=== PATIENT | male | born 1940 | race Caucasian/White ===

== ENCOUNTER 2020-02-26 07:59 | Outpatient (CLI) | payer MEDICARE, SELFPAY ==
[2020-02-26 08:31] LABS: Basophils Percent Auto 0.7 % (0.2-1.2); Eosinophils Absolute Auto 0.2 K/mm3 (0-0.3); Hematocrit 45.3 % (42.0-52.0); Hemoglobin 15.7 g/dL (14.0-18.0); Immature Granulocyte Absolute 0.04 K/mm3 (0.00-0.031); Immature Granulocyte Percent A 0.7 % (0-0.5); Lymphocytes Percent Auto 26.8 % (18.3-44.2); Mean Corpuscular HGB Conc 34.7 g/dl (32-36); Mean Corpuscular Hemoglobin 33.5 pg (26-34); Mean Corpuscular Volume 96.6 fl (80-100); Mean Platelet Volume 9.2 fl (7.4-10.4); Monocytes Absolute Auto 0.7 K/mm3 (0.1-0.6); Monocytes Percent Auto 10.9 % (2.6-8.5); Neutrophils Absolute Auto 3.5 K/mm3 (1.3-6.7); Neutrophils Percent Auto 57.9 % (45.5-73.1); Platelet Count Result 257 k/mm3 (150-375); Red Blood Count 4.69 M/mm3 (4.6-6.20); Red Cell Distribution Width 12.6 % (11.5-14.5)
[2020-02-26 08:44] LABS: Alanine Aminotransferase 26 U/L (4-50); Albumin Level 4.5 g/dL (3.5-5.1); Alkaline Phosphatase 85 U/L (38-126); Aspartate Amino Transferase 29 U/L (17-59); Bilirubin,Total 0.9 mg/dL (0.2-1.3); Blood Urea Nitrogen 14 mg/dL (9-20); Calcium 9.3 mg/dL (8.4-10.2); Carbon Dioxide 31 mmol/L (22-30); Chloride 96 mmol/L (98-107); Cholesterol 162 mg/dL (0-200); Estimated Glomerular Filt Rate > 60; Glucose 98 mg/dL (75-110); HDL Direct 61 mg/dL; Potassium 3.6 mmol/L (3.4-5.0); Sodium 134 mmol/L (137-145); Triglycerides 166 mg/dL (<150); Uric Acid 3.9 mg/dL (3.5-8.5)
[2020-02-26 08:55] LABS: LDL Cholesterol Direct 69 mg/dL
[2020-02-26 09:03] LABS: Vitamin D 25 Hydroxy 36.3 ng/mL
[2020-02-26 09:14] LABS: Prostate Specific Antigen 4.8 ng/mL (< OR = 4.0)
== END 2020-02-26 08:00 | disposition home or self-care (01) ==
LOC: ANHLAB 08:04
PROVIDERS: PCP Family Medicine; Visit Provider Family Medicine
DX: N18.3 Chronic kidney disease, stage 3 (moderate) (principal); N40.1 Benign prostatic hyperplasia with lower urinary tract symptoms; E55.9 Vitamin D deficiency, unspecified; I12.9 Hypertensive chronic kidney disease with stage 1 through stage 4 chronic kidney disease, or unspecified chronic kidney disease; Z12.5 Encounter for screening for malignant neoplasm of prostate; R53.1 Weakness; M10.9 Gout, unspecified
CPT/HCPCS: 36415; 80053; 80061; 82306; 84153; 84439; 84443; 84480; 84550; 85025; G0103

== ENCOUNTER 2020-05-26 10:52 | Outpatient (CLI) | payer MEDICARE, SELFPAY ==
[2020-05-26 16:21] LABS: Anion Gap 11 mmol/L (8-16); Blood Urea Nitrogen 15 mg/dL (9-20); Calcium 9.6 mg/dL (8.4-10.2); Carbon Dioxide 28 mmol/L (22-30); Chloride 98 mmol/L (98-107); Estimated Glomerular Filt Rate > 60; Glucose 152 mg/dL (75-110); Potassium 3.6 mmol/L (3.4-5.0); Sodium 137 mmol/L (137-145)
== END 2020-05-26 10:53 | disposition home or self-care (01) ==
PROVIDERS: PCP Family Medicine; Visit Provider Family Medicine
DX: E87.1 Hypo-osmolality and hyponatremia (principal)
CPT/HCPCS: 36415; 80048

== ENCOUNTER 2020-10-01 07:02 | Outpatient (NON) | payer MEDICARE, SELFPAY ==
[2020-10-01 21:50] LABS: SARS-CoV-2 RNA PCR Positive
== END 2020-10-01 07:03 ==
LOC: ANHCOVIDDT 07:02
PROVIDERS: PCP Family Medicine; Visit Provider Family Medicine
DX: U07.1 COVID-19 (principal)
CPT/HCPCS: C9803; U0003; U0005

== ENCOUNTER 2021-03-09 10:15 | Outpatient (CLI) | payer MEDICARE, SELFPAY ==
[2021-03-09 11:02] LABS: Hematocrit 45.3 % (42.0-52.0); Hemoglobin 15.2 g/dL (14.0-18.0); Mean Corpuscular HGB Conc 33.6 g/dl (32-36); Mean Corpuscular Hemoglobin 32.8 pg (26-34); Mean Corpuscular Volume 97.6 fl (80-100); Mean Platelet Volume 9.3 fl (7.4-10.4); Platelet Count Result 222 k/mm3 (150-375); Red Blood Count 4.64 M/mm3 (4.6-6.20); Red Cell Distribution Width 12.6 % (11.5-14.5); White Blood Count 5.1 K/mm3 (4.5-10.0)
[2021-03-09 11:16] LABS: Alanine Aminotransferase 24 U/L (4-50); Albumin Level 4.4 g/dL (3.5-5.1); Alkaline Phosphatase 73 U/L (38-126); Anion Gap 6 mmol/L (8-16); Aspartate Amino Transferase 31 U/L (17-59); Bilirubin,Total 1.1 mg/dL (0.2-1.3); Blood Urea Nitrogen 10 mg/dL (9-20); Calcium 9.8 mg/dL (8.4-10.2); Carbon Dioxide 31 mmol/L (22-30); Chloride 103 mmol/L (98-107); Cholesterol 147 mg/dL (0-200); Estimated Glomerular Filt Rate > 60; Glucose 96 mg/dL (75-110); HDL Direct 68 mg/dL; Potassium 4.2 mmol/L (3.4-5.0); Sodium 140 mmol/L (137-145); Triglycerides 64 mg/dL (<150)
[2021-03-09 11:27] LABS: LDL Cholesterol Direct 54 mg/dL
[2021-03-09 11:34] LABS: Creatinine Urine 36.2 mg/dL
[2021-03-09 11:44] LABS: Prostate Specific Antigen 5.8 ng/mL (< OR = 4.0); Total Triiodothyronine (T3) 1.16 NG/ML (0.97-1.69)
[2021-03-09 11:57] LABS: Free T4 Free Thyroxine 1.04 ng/mL (0.78-2.19)
[2021-03-09 11:59] LABS: Microalbumin Urine Random < 6.0 mg/L (0-16.7)
[2021-03-09 12:00] LABS: MALB Creatinine Ratio < 16.6 mg/g (0-30)
[2021-03-09 12:09] LABS: Vitamin D 25 Hydroxy 36.5 ng/mL
[2021-03-09 12:26] LABS: Basophils Percent Auto 0.8 % (0.2-1.2); Eosinophils Absolute Auto 0.2 K/mm3 (0-0.3); Eosinophils Percent Auto 4.1 % (0-4.4); Immature Granulocyte Absolute 0.04 K/mm3 (0.00-0.031); Immature Granulocyte Percent A 0.8 % (0-0.5); Lymphocytes Absolute Auto 1.36 K/mm3 (0.9-3.2); Monocytes Absolute Auto 0.5 K/mm3 (0.1-0.6); Monocytes Percent Auto 9.9 % (2.6-8.5); Neutrophils Absolute Auto 2.7 K/mm3 (1.3-6.7); Neutrophils Percent Auto 56.4 % (45.5-73.1)
== END 2021-03-09 10:16 | disposition home or self-care (01) ==
PROVIDERS: PCP Family Medicine; Visit Provider Nurse Practitioner
DX: I50.32 Chronic diastolic (congestive) heart failure (principal); N40.1 Benign prostatic hyperplasia with lower urinary tract symptoms; I10 Essential (primary) hypertension; R97.20 Elevated prostate specific antigen [PSA]; E55.9 Vitamin D deficiency, unspecified; E66.9 Obesity, unspecified; Z12.5 Encounter for screening for malignant neoplasm of prostate
CPT/HCPCS: 36415; 80053; 80061; 82043; 82306; 84153; 84439; 84443; 84480; 85025; 85027; G0103

== ENCOUNTER 2021-04-27 02:16 | Day surgery (SDC) | payer MEDICARE, SELFPAY ==
[2021-04-17 14:41] VITALS: BMI 28.7
[2021-04-27 07:57] VITALS: BP 141/75; PULSE 74; RESP 20; TEMP 36.1; O2SAT 99; BMI 29.0
[2021-04-27] MEDS: LACTATED RINGERS 1,000 ML 150 ML IV CONT (08:19)
[2021-04-27] MEDS: GENTAMICIN 80MG/SOD CHL 50 ML 80 MG/50 ML BAG 100 MG IVPB (08:21)
--- NOTE | 2021-04-27 08:23 | P.PNAN_ITS ---
Anes - Initial Pre Proc Eval Procedure: Operation Date: 04/27/21 09:15 Proposed Procedures p Screening Colonoscopy - Jadiel Bee MD Date/Time: 04/27/21 08:23 Surgeon: Jadiel Bee MD Pre Op Diagnosis: hx of colon polyps Patient Data Age: 80 Gender: M Height: 1.83 m Weight: 96.9 kg Last Vital Signs Temp 36.1 C L 04/27/21 07:57 Pulse 74 04/27/21 07:57 Resp 20 04/27/21 07:57 BP 141/75 H 04/27/21 07:57 Pulse Ox 99 04/27/21 07:57 Allergies Allergy/AdvReac Type Severity Reaction Status Date / Time adhesive Allergy Intermediate Blister Verified 04/27/21 07:56 adhesive tape Allergy Intermediate BLISTERS Verified 04/27/21 07:56 Home Medications Medication Instructions Recorded Confirmed Type allopurinol 300 mg PO DAILY 04/17/21 04/17/21 History aspirin 81 mg PO DAILY 04/17/21 04/17/21 History atorvastatin 10 mg PO DAILY 04/17/21 04/17/21 History coQ10 (ubiquinol) 200 mg PO DAILY 04/17/21 04/17/21 History hydrochlorothiazide 25 mg PO DAILY 04/17/21 04/17/21 History multivitamin [A To Z Multivitamin] 1 tablet PO DAILY 04/17/21 04/17/21 History omeprazole 20 mg PO DAILY 04/17/21 04/17/21 History tamsulosin 0.4 mg PO DAILY 04/17/21 04/17/21 History vitamin B complex [B 1 tablet PO DAILY 04/17/21 04/17/21 History Complex-Vitamin B12] Patient hx anesthesia problems: none Family hx anesthesia problems: none [facility] Past Medical History Medical History (Updated 04/27/21 @ 08:27 by Bob Cluadio MD) CAD (coronary artery disease) Obesity Surgical History Surgical History History of colon resection Hx of CABG S/P AVR Family History Family History Mother Family history of malignant neoplasm Sibling Family history of malignant neoplasm Father Family history of Parkinson's disease Social History Social History Smoking status: Former smoker Smoking end date: 09/16/06 Alcohol intake: current Alcohol use details: SOCIALLY Substance use: never Substance use type: does not use Living arrangements: with family Spiritual care concerns: No Anes - Eval Final PreProcedure Day of Procedure 04/27/21 08:23 Patient weight: obese Heart: regular rate and rhythm Lungs: clear to auscultation Airway: Mallampati scale class II Neurological: alert and oriented Last oral intake: >/= 8 hours ASA classification: III Emergent: no Anesthetic plan: proceed Anesthesia type and monitoring: general GIVS and standard monitoring Informed Consent: The patient's anesthetic plan and its attendant risks and benefits were discussed with the patient/family/POA. Questions were solicited and answers provided to the satisfaction of the patient/family/POA.
--- NOTE | 2021-04-27 08:41 | WPDGICN ---
Assessment and Plan Assessment and plan (1) History of colon polyps: Code(s): Z86.010 - Personal history of colonic polyps Status: Acute Assessment and Plan: Patient has a history of colon polyps in the past on several previous endoscopies. At 1 point he had colon resection because of diverticulitis. Plan is for surveillance colonoscopy now and at intervals in the future. Further recommendations will be given after colonoscopy. GI Consult Note Consult date/time: 04/27/21 08:41 HPI: Simeno Crowe Jr. is a 80 year old male Presents for screening colonoscopy. Patient has a history of colon polyps on several previous colonoscopies. Most recent colonoscopy was 2016. Patient denies any blood in his stools. He reports his current weight appetite bowel movements are normal. He denies abdominal pain. Family history is noncontributory. Review of Systems Review of Systems: All systems reviewed & are unremarkable except as noted in HPI and below PMFSH Past Medical History Medical History (Updated 04/27/21 @ 08:43 by Jadiel Bee MD) CAD (coronary artery disease) Obesity Surgical History Surgical History History of colon resection Hx of CABG S/P AVR Family History Family History Mother Family history of malignant neoplasm Sibling Family history of malignant neoplasm Father Family history of Parkinson's disease Social History Social History Smoking status: Former smoker Smoking end date: 09/16/06 Alcohol intake: current Alcohol use details: SOCIALLY Substance use: never Substance use type: does not use Living arrangements: with family Spiritual care concerns: No Meds Home Medications and Allergies Home Medications Medication Instructions Recorded Confirmed Type allopurinol 300 mg PO DAILY 04/17/21 04/17/21 History aspirin 81 mg PO DAILY 04/17/21 04/17/21 History atorvastatin 10 mg PO DAILY 04/17/21 04/17/21 History coQ10 (ubiquinol) 200 mg PO DAILY 04/17/21 04/17/21 History hydrochlorothiazide 25 mg PO DAILY 04/17/21 04/17/21 History multivitamin [A To Z Multivitamin] 1 tablet PO DAILY 04/17/21 04/17/21 History omeprazole 20 mg PO DAILY 04/17/21 04/17/21 History tamsulosin 0.4 mg PO DAILY 04/17/21 04/17/21 History vitamin B complex [B 1 tablet PO DAILY 04/17/21 04/17/21 History Complex-Vitamin B12] Allergies Allergy/AdvReac Type Severity Reaction Status Date / Time adhesive Allergy Intermediate Blister Verified 04/27/21 07:56 adhesive tape Allergy Intermediate BLISTERS Verified 04/27/21 07:56 Vital Signs Vital Signs - 24 hr 04/27/21 07:57 Temperature 97.0 F L Pulse Rate 74 Respiratory Rate 20 Blood Pressure 141/75 H Pulse Oximetry 99 Exam Narrative: Physical exam reveals patient to be alert. Vital signs are stable. HEENT exam is unremarkable. Patient is anicteric. Lungs are clear to auscultation and percussion. Heart is without murmur or extra sounds. Abdominal exam bowel sounds are present soft nontender with no organomegaly. Digital external rectal exam is normal.
[2021-04-27] MEDS: AMPICILLIN 2 GM/NS 100 ML 2 GM/100 ML BAG IVPB (08:48)
[2021-04-27 09:39] VITALS: BP 111/69; PULSE 66; RESP 15; O2SAT 99
[2021-04-27 09:49] VITALS: BP 115/65; PULSE 70; RESP 20; O2SAT 99
[2021-04-27 09:59] VITALS: BP 114/77; PULSE 72; RESP 20; O2SAT 100
== END 2021-04-27 10:18 | disposition home or self-care (01) ==
PROVIDERS: PCP Family Medicine; Visit Provider Internal Medicine Gastroenterology
PROC: 0DJD8ZZ Inspection of Lower Intestinal Tract, Via Natural or Artificial Opening Endoscopic (ICD-10-PCS; CPT 45378; principal; 2021-04-27 09:15)
DX: Z12.11 Encounter for screening for malignant neoplasm of colon (principal); D12.7 Benign neoplasm of rectosigmoid junction; K64.8 Other hemorrhoids; Z98.0 Intestinal bypass and anastomosis status; Z79.82 Long term (current) use of aspirin; I25.10 Atherosclerotic heart disease of native coronary artery without angina pectoris; E66.9 Obesity, unspecified; Z68.29 Body mass index [BMI] 29.0-29.9, adult; Z87.891 Personal history of nicotine dependence; Z87.19 Personal history of other diseases of the digestive system; Z95.1 Presence of aortocoronary bypass graft; Z95.4 Presence of other heart-valve replacement
CPT/HCPCS: 45385; 88305; J0290; J1580; J2001; J2704; J7120

== ENCOUNTER 2022-02-02 08:17 | Outpatient (CLI) | payer MEDICARE, SELFPAY ==
[2022-02-02 09:05] LABS: Basophils Absolute Auto 0.1 K/mm3 (0.0-0.1); Basophils Percent Auto 0.9 % (0.2-1.2); Eosinophils Absolute Auto 0.2 K/mm3 (0-0.3); Hematocrit 44.9 % (42.0-52.0); Hemoglobin 14.9 g/dL (14.0-18.0); Immature Granulocyte Absolute 0.03 K/mm3 (0.00-0.031); Immature Granulocyte Percent A 0.5 % (0-0.5); Lymphocytes Absolute Auto 1.27 K/mm3 (0.9-3.2); Mean Corpuscular HGB Conc 33.2 g/dl (32-36); Mean Corpuscular Hemoglobin 32.2 pg (26-34); Mean Platelet Volume 9.4 fl (7.4-10.4); Monocytes Absolute Auto 0.6 K/mm3 (0.1-0.6); Monocytes Percent Auto 9.5 % (2.6-8.5); Neutrophils Absolute Auto 3.6 K/mm3 (1.3-6.7); Neutrophils Percent Auto 63.1 % (45.5-73.1); Platelet Count Result 264 k/mm3 (150-375); Red Blood Count 4.63 M/mm3 (4.6-6.20); Red Cell Distribution Width 13.2 % (11.5-14.5); White Blood Count 5.8 K/mm3 (4.5-10.0)
[2022-02-02 09:20] LABS: Alanine Aminotransferase 18 U/L (6-50); Albumin Level 4.4 g/dL (3.5-5.1); Alkaline Phosphatase 83 U/L (38-126); Anion Gap 8 mmol/L (8-16); Aspartate Amino Transferase 25 U/L (17-59); Bilirubin,Total 0.7 mg/dL (0.2-1.3); Blood Urea Nitrogen 13 mg/dL (9-20); Calcium 9.2 mg/dL (8.4-10.2); Carbon Dioxide 29 mmol/L (22-30); Chloride 101 mmol/L (98-107); Cholesterol 145 mg/dL (0-200); Estimated Glomerular Filt Rate > 60; Glucose 90 mg/dL (65-110); HDL Direct 56 mg/dL; Potassium 3.9 mmol/L (3.4-5.0); Sodium 138 mmol/L (137-145); Triglycerides 94 mg/dL (<150)
[2022-02-02 09:31] LABS: LDL Cholesterol Direct 52 mg/dL
[2022-02-02 10:49] LABS: Free T4 Free Thyroxine 1.15 ng/mL (0.78-2.19); Vitamin D 25 Hydroxy 45.3 ng/mL
== END 2022-02-02 08:18 | disposition home or self-care (01) ==
PROVIDERS: PCP Family Medicine; Visit Provider Family Medicine
DX: E78.5 Hyperlipidemia, unspecified (principal); E55.9 Vitamin D deficiency, unspecified; Z13.29 Encounter for screening for other suspected endocrine disorder; Z13.220 Encounter for screening for lipoid disorders; Z13.6 Encounter for screening for cardiovascular disorders; Z13.0 Encounter for screening for diseases of the blood and blood-forming organs and certain disorders involving the immune mechanism
CPT/HCPCS: 36415; 80053; 80061; 82306; 84439; 84443; 84480; 85025

== ENCOUNTER 2023-03-06 07:07 | Outpatient (CLI) | payer MEDICARE, SELFPAY ==
[2023-03-06 07:51] LABS: Basophils Percent Auto 0.7 % (0.2-1.2); Eosinophils Absolute Auto 0.2 K/mm3 (0-0.3); Eosinophils Percent Auto 4.4 % (0-4.4); Hematocrit 45.3 % (42.0-52.0); Hemoglobin 15.2 g/dL (14.0-18.0); Immature Granulocyte Absolute 0.03 K/mm3 (0.00-0.031); Immature Granulocyte Percent A 0.6 % (0-0.5); Lymphocytes Absolute Auto 1.38 K/mm3 (0.9-3.2); Lymphocytes Percent Auto 25.4 % (18.3-44.2); Mean Corpuscular HGB Conc 33.6 g/dl (32-36); Mean Corpuscular Volume 98.3 fl (80-100); Mean Platelet Volume 9.5 fl (7.4-10.4); Monocytes Absolute Auto 0.6 K/mm3 (0.1-0.6); Monocytes Percent Auto 10.5 % (2.6-8.5); Neutrophils Absolute Auto 3.2 K/mm3 (1.3-6.7); Neutrophils Percent Auto 58.4 % (45.5-73.1); Platelet Count Result 232 k/mm3 (150-375); Red Blood Count 4.61 M/mm3 (4.6-6.20); Red Cell Distribution Width 12.9 % (11.5-14.5); White Blood Count 5.4 K/mm3 (4.5-10.0)
[2023-03-06 08:04] LABS: Alanine Aminotransferase 30 U/L (6-50); Albumin Level 4.6 g/dL (3.5-5.1); Alkaline Phosphatase 80 U/L (38-126); Anion Gap 5 mmol/L (8-16); Aspartate Amino Transferase 32 U/L (17-59); Bilirubin,Total 0.9 mg/dL (0.2-1.3); Blood Urea Nitrogen 13 mg/dL (9-20); Calcium 9.4 mg/dL (8.4-10.2); Carbon Dioxide 34 mmol/L (22-30); Chloride 102 mmol/L (98-107); Cholesterol 145 mg/dL (0-200); Estimated Glomerular Filt Rate > 60; Glucose 103 mg/dL (65-110); HDL Direct 59 mg/dL; Potassium 4.1 mmol/L (3.4-5.0); Sodium 141 mmol/L (137-145); Triglycerides 111 mg/dL (<150)
[2023-03-06 08:28] LABS: LDL Cholesterol Direct 61 mg/dL
[2023-03-06 08:34] LABS: Prostate Specific Antigen 6.4 ng/mL (< OR = 4.0)
[2023-03-06 08:38] LABS: Creatinine Urine 123.7 mg/dL
[2023-03-06 08:44] LABS: MALB Creatinine Ratio < 4.9 mg/g (0-30); Microalbumin Urine Random < 6.0 mg/L (0-16.7)
[2023-03-06 09:09] LABS: Vitamin D 25 Hydroxy 41.3 ng/mL
[2023-03-06 23:12] LABS: Total Triiodothyronine (T3) 1.22 NG/ML (0.97-1.69)
[2023-03-10 05:21] LABS: Triiodothyronine T3 Free 3.5 pg/mL (2.3-4.2)
== END 2023-03-06 07:08 | disposition home or self-care (01) ==
LOC: ANHLAB 07:11
PROVIDERS: PCP Family Medicine; Visit Provider Nurse Practitioner Adult Health
DX: R60.9 Edema, unspecified (principal); I10 Essential (primary) hypertension; K21.9 Gastro-esophageal reflux disease without esophagitis; M10.9 Gout, unspecified; E78.5 Hyperlipidemia, unspecified; R53.83 Other fatigue; R53.1 Weakness; Z12.5 Encounter for screening for malignant neoplasm of prostate; E55.9 Vitamin D deficiency, unspecified
CPT/HCPCS: 36415; 80053; 80061; 82043; 82306; 84153; 84439; 84443; 84480; 84481; 85025; G0103

== ENCOUNTER 2023-07-26 07:44 | Outpatient (CLI) | payer MEDICARE, SELFPAY ==
--- NOTE | 2023-07-26 07:53 | ECG_ITS ---
Measurements Intervals [place] Rate: 65 P: -8 DE: 173 QRS: 2 QRSD: 120 T: 78 QT: 388 QTc: 403 Interpretive Statements SINUS RHYTHM INCOMPLETE LEFT BUNDLE BRANCH BLOCK DELAYED PRECORDIAL R/S TRANSITION BORDERLINE ST-T WAVE ABNORMALITY- HIGH LATERAL LEADS BASELINE ARTIFACT- I, II, III, AVR, AVL, AVF, V1 ABNORMAL ECG COMPARED TO ECG 11/16/2018 12:22:38 SINUS RHYTHM NOW PRESENT Electronically Signed On 07-26-2023 8:35:08 PUBLIC HEALTH TECHNICIAN by Nish Shahid D.O.
[2023-07-26 08:46] LABS: Anion Gap 7 mmol/L (8-16); Blood Urea Nitrogen 13 mg/dL (9-20); Calcium 9.4 mg/dL (8.4-10.2); Carbon Dioxide 33 mmol/L (22-30); Chloride 100 mmol/L (98-107); Estimated Glomerular Filt Rate > 60; Glucose 105 mg/dL (65-110); Sodium 140 mmol/L (137-145)
== END 2023-07-26 07:45 | disposition home or self-care (01) ==
LOC: ANHSURGERY 07:48
PROVIDERS: Anesthesiology; PCP Family Medicine; Visit Provider Surgery
DX: K40.90 Unilateral inguinal hernia, without obstruction or gangrene, not specified as recurrent (principal); I10 Essential (primary) hypertension; Z01.818 Encounter for other preprocedural examination; I44.7 Left bundle-branch block, unspecified
CPT/HCPCS: 36415; 80048; 86850; 86900; 86901; 93005

== ENCOUNTER 2023-07-29 01:49 | Day surgery (SDC) | payer MEDICARE, SELFPAY ==
--- NOTE | 2023-07-25 09:27 | PC.NURSE ---
Report to the Outpatient Waiting Room, entrance under the green pavilion located off [facility], at time __0730 on date __07/29/23 . Planned Procedure Time: _30 . Time changes happen often and if your time is changed the preop area will call you the afternoon before. - You and your visitor will be asked to self-screen and do not enter if you have any COVID symptoms. - A mask is optional within the hospital at this time. Patients may have clear liquids (water, carbonated beverages, clear teas, apple juice) until 3 hours prior to surgery with a maximum of 20 ounces. - No food from midnight until time of surgery - Infants may have breast milk until 4 hours before surgery, formula 6 hours prior to surgery. - Children will be allowed to drink immediately following surgery. If applicable, please bring a bottle or sippy cup to assist with drinking. Juice, water, soda, and popsicles are readily available. For infants on formula, please bring formula the day of surgery. Pacifiers are allowed. Take the following medications with a SIP of water the morning of surgery: ___NONE DO NOT STOP ANY OF YOUR OTHER PRESCRIPTION MEDICATIONS PRIOR TO SURGERY ?EXCEPT THE FOLLOWING Medications to discontinue per physician __ALL VITAMINS AND SUPPLEMENTS 3 DAYS PRE OP .LAST DOSE 07/25/23 Please no make-up, nail belizean, hairspray, perfume, deodorant, or body powder the day of surgery. No jewelry (including any body piercings) or valuables the day of surgery, leave them at home. Please take a shower or bath the night before, or the morning of, surgery with an antibacterial soap. Wear comfortable, loose fitting clothing. Children are encouraged to wear pajamas. - Jewelry must be removed prior to entering the operating room. Rings and piercings that are not removed may be cut off. - The hospital will not accept responsibility for valuables. - Please leave all valuables, including medications, at home the day of surgery. If you are going home after surgery, a licensed cat driver must drive you home. - NO public transportation without another adult if you receive anesthesia. - We recommend that an adult stay with you for 24 hours following discharge. - We also recommend that you do not drive, make important decision, drink alcoholic beverages, or take any drugs that were not prescribed by your health care provider for at least 24 hours after your discharge time. Follow any additional instructions given to you from your surgeon. If you or anyone in your household have experienced Covid symptoms in the past week, please notify your surgeon or the nurse liaison at the phone number below for possible testing. Telephone instructions given to __PATIENT and asked if any additional questions and then verbalized understanding. Patient advised to call surgeon office or pre surgery nurse liaison [phone] if any additional questions.
[2023-07-25 09:36] VITALS: BMI 29.1
[2023-07-29] VITALS (8 sets, daily range): BP systolic 112–141; BP diastolic 57–84; PULSE 64–72; RESP 14–18; TEMP 36.2–36.7; O2SAT 97–99
--- NOTE | 2023-07-29 07:26 | WPDANESEPPF ---
Anes - Initial Pre Proc Eval Procedure: Operation Date: 07/29/23 09:30 Proposed Procedures p Robotic Assisted Left Inguinal Hernia Repair with Mesh - Latasha Becerra MD Date/Time: 07/29/23 07:26 Surgeon: Latasha Becerra MD Pre Op Diagnosis: left inguinal hernia Patient Data Age: 83 Gender: M Height: 1.83 m Weight: 97.55 kg Allergies Allergy/AdvReac Type Severity Reaction Status Date / Time adhesive tape Allergy Intermediate BLISTERS Verified 07/29/23 08:26 Home Medications Medication Instructions Recorded Confirmed Type allopurinol 300 mg tablet 300 mg PO DAILY 04/17/21 07/29/23 History aspirin 81 mg tablet 81 mg PO DAILY 04/17/21 07/29/23 History atorvastatin 10 mg tablet 10 mg PO DAILY 04/17/21 07/29/23 History coQ10 (ubiquinol) 200 mg capsule 200 mg PO DAILY 04/17/21 07/29/23 History hydrochlorothiazide 25 mg tablet 25 mg PO DAILY 04/17/21 07/29/23 History multivitamin 1 tablet PO DAILY 04/17/21 07/29/23 History omeprazole 20 mg capsule,delayed 20 mg PO DAILY 04/17/21 07/29/23 History release tamsulosin 0.4 mg capsule 0.8 mg PO HS 04/17/21 07/29/23 History vitamin B complex (B 1 tablet PO DAILY 04/17/21 07/29/23 History Complex-Vitamin B12 tablet) Patient hx anesthesia problems: none Family hx anesthesia problems: none Results Review: All pre-operative results and documents have been reviewed as part of the pre-operative evaluation. [facility] Past Medical History Medical History CAD (coronary artery disease) GERD (gastroesophageal reflux disease) High cholesterol History of blood transfusion HTN (hypertension) Obesity Skin cancer Surgical History Surgical History H/O aortic valve replacement H/O prostate biopsy H/O right inguinal hernia repair H/O shoulder surgery History of colon resection Hx of CABG S/P AVR Family History Family History Mother Family history of malignant neoplasm Sibling Family history of malignant neoplasm Diabetes mellitus Hypertension Kidney disease Father Family history of Parkinson's disease Other Heart disease Social History Social History Smoking packs per day: 1.5 Smoking cigarettes per day: 30.0 Years smoked: 40 Smoking pack-years: 60.00 Smoking status: Former smoker Tobacco type: cigarettes Smoking end date: 09/16/06 Alcohol intake: current Drinks per week: 4 Alcohol use details: SOCIALLY-beer Substance use: never Substance use type: does not use Living arrangements: with family Occupation/Education: retired Spiritual care concerns: No Anes - Eval Final PreProcedure Day of Procedure 07/29/23 07:26 Patient weight: obese Heart: regular rate and rhythm Lungs: clear to auscultation Airway: Mallampati scale class II Neurological: alert and oriented Last oral intake: >/= 8 hours ASA classification: III Emergent: no Anesthetic plan: proceed Anesthesia type and monitoring: general ETT and standard monitoring Results Review: All pre-operative results and documents have been reviewed as part of the pre-operative evaluation. Informed Consent: The patient's anesthetic plan and its attendant risks and benefits were discussed with the patient/family/POA. Questions were solicited and answers provided to the satisfaction of the patient/family/POA.
--- NOTE | 2023-07-29 07:29 | PM.IMHP ---
H&P: HPI History of Present Illness Date/Time: 07/29/23 07:29 Chief Complaint: left inguinal hernia Narrative: Simeon returns to the office for another recheck of a left inguinal hernia. Patient was previous evaluated for this by Dr. Marquez in September 2021. At the time patient was mostly asymptomatic and elected to proceed with watchful waiting vs surgical repair. He states that since he was last seen he has noticed a gradual increase in the size of the hernia. He reports mild discomfort with activity. Reports difficulty with urination as well as constipation. He also reports an umbilical bulge. Patient has a previous surgical history of a right inguinal hernia repair. Review of Systems Review of Systems: All systems reviewed & are unremarkable except as noted in HPI and below PMFSH Past Medical History Medical History CAD (coronary artery disease) GERD (gastroesophageal reflux disease) High cholesterol History of blood transfusion HTN (hypertension) Obesity Skin cancer Surgical History Surgical History H/O aortic valve replacement H/O prostate biopsy H/O right inguinal hernia repair H/O shoulder surgery History of colon resection Hx of CABG S/P AVR Family History Family History Mother Family history of malignant neoplasm Sibling Family history of malignant neoplasm Diabetes mellitus Hypertension Kidney disease Father Family history of Parkinson's disease Other Heart disease Social History Social History Smoking packs per day: 1.5 Smoking cigarettes per day: 30.0 Years smoked: 40 Smoking pack-years: 60.00 Smoking status: Former smoker Tobacco type: cigarettes Smoking end date: 09/16/06 Alcohol intake: current Drinks per week: 4 Alcohol use details: SOCIALLY-beer Substance use: never Substance use type: does not use Living arrangements: with family Occupation/Education: retired Spiritual care concerns: No Meds Home Medications and Allergies Home Medications Medication Instructions Recorded Confirmed Type allopurinol 300 mg tablet 300 mg PO DAILY 04/17/21 07/25/23 History aspirin 81 mg tablet 81 mg PO DAILY 04/17/21 07/25/23 History atorvastatin 10 mg tablet 10 mg PO DAILY 04/17/21 07/25/23 History coQ10 (ubiquinol) 200 mg capsule 200 mg PO DAILY 04/17/21 07/25/23 History hydrochlorothiazide 25 mg tablet 25 mg PO DAILY 04/17/21 07/25/23 History multivitamin 1 tablet PO DAILY 04/17/21 07/25/23 History omeprazole 20 mg capsule,delayed 20 mg PO DAILY 04/17/21 07/25/23 History release tamsulosin 0.4 mg capsule 0.8 mg PO HS 04/17/21 07/25/23 History vitamin B complex (B 1 tablet PO DAILY 04/17/21 07/25/23 History Complex-Vitamin B12 tablet) Allergies Allergy/AdvReac Type Severity Reaction Status Date / Time adhesive tape Allergy Intermediate BLISTERS Verified 07/25/23 09:16 Exam Const: General: cooperative, comfortable and no acute distress Resp: Auscultation: clear to auscultation bilaterally Cardio: Rate: regular rate Rhythm: regular rhythm GI: Inspection: normal to inspection and non-distended GI Palp: No abdominal tenderness, Yes Soft to palpation, No Tenderness to palpation present (GI) and Yes Hernia present Assessment and Plan Assessment and plan (1) Left inguinal hernia: Code(s): K40.90 - Unilateral inguinal hernia, without obstruction or gangrene, not specified as recurrent Status: Acute Assessment and Plan: will setup for robotic assisted left inguinal hernia repair c mesh
[2023-07-29] MEDS: ACETAMINOPHEN 500 MG TABLET 1000 MG PO (08:18)
[2023-07-29] MEDS: LACTATED RINGERS 1,000 ML 30 ML IV CONT ×2 (08:18→11:56)
[2023-07-29] MEDS: KETOROLAC 15 MG/ML VIAL (*BKC) IV PUSH (08:19)
--- NOTE | 2023-07-29 09:15 | WPDHPUPDATE1 ---
History and Physical Update Update Date/Time: 07/29/23 09:15 History and Physical has been reviewed, including an updated exam of the patient. There are NO changes in the patient's condition. Risks, benefits, and alternatives have been discussed and questions answered. Patient agrees to proceed with procedure.
[2023-07-29] MEDS: ceFAZolin 2 GM/D5W 50 ML 2 GM/50 ML BAG IVPB (09:28)
[2023-07-29] MEDS: BUPIVACAINE/EPINEPHRINE 0.5% 50 ML VIAL 30 ML INFILTRATE (09:55)
--- NOTE | 2023-07-29 10:55 | P.OP_ITS ---
Procedure Note - Detailed Date of Procedure 07/29/23 Pre-op Diagnosis incarcerated left inguinal hernia Post-op Diagnosis Same Procedure Performed robotic assisted incarcerated left inguinal hernia repair with mesh Surgeon Latasha Becerra MD Anesthesia General Indications 83 y/o M c LIH and worsening groin pain over last few months Findings indirect left inguinal hernia with incarcerated sigmoid colon Description of Procedure Patient was brought into the operating room and placed in the supine position. After adequate induction of general anesthesia, the patient was prepped and draped in normal sterile fashion. A time-out was then done to verify the patient's identity, as well as the procedure being performed. I began by making a 8 mm incision in the supraumbilical region, a Veress needle was then placed into the peritoneal cavity. CO2 gas was then insufflated and after adequate pneumoperitoneum was achieved, the Veress needle was removed. I then placed an 8 mm trocar through this incision. I then placed the endoscope through this trocar site and under direct visualization placed 2 further 8 mm ports in the right and left mid abdomen. The [employer] robot was then docked to the 3 trocar sites. I then scrubbed out and went to the robotic console. Upon examining the pelvis, it was noted that the patient had a large left inguinal hernia with incarcerated sigmoid colon. The right side was examined and no hernia defect was noted. Using gentle traction and some careful dissection, I was able to reduce the sigmoid colon. I began by making a preperitoneal flap approximately 6 cm superior to the defect. This flap was carried medially past the umbilical ligaments and laterally to the transversalis. It then began dissection of my medial compartment taking this down to the pubic tubercle. I then began the lateral dissection taking this down to the transversalis fascia. Once these compartments were achieved, I began dissection around the cord structures. A large sized indirect hernia was noted at this point. Using careful dissection, was able to reduce indirect hernia sac off the cord structures. Once this was adequately done, I went ahead and placed a large piece of 3D Max mesh into the abdominal cavity. The mesh was carefully positioned, centering the center of the mesh over the indirect defect. Once this was done, was very satisfied with our repair. Using 3-0 Vicryl sutures, I tacked the mesh medially to Nelson's ligament. Two lateral sutures were placed from the mesh to the transversalis fascia. I then closed the peritoneal flap with a running 2.0 V Lock suture. The abdomen was then desufflated, and all ports were removed. All incisions were then closed with the 4.0 monocryl suture. Dermabond was placed on each wound. The patient tolerated the procedure well, was extubated in the operating room postoperatively, and will now be transferred to the recovery room in stable condition. Implants large 3DMax mesh Estimated Blood Loss 10 Drains No Packing No Pathology None sent Complications No immediate complications Condition Stable Disposition PACU [facility] Billing Surgery - Charge Forward: Surgery Billing
[2023-07-29] MEDS: LACTATED RINGERS 1,000 ML 100 ML IV CONT (12:36)
== END 2023-07-29 13:11 | disposition home or self-care (01) ==
PROVIDERS: PCP Family Medicine; Visit Provider Surgery
PROC: 8E0Y4CZ Robotic Assisted Procedure of Lower Extremity, Percutaneous Endoscopic Approach (ICD-10-PCS; CPT 49650; principal; 2023-07-29 09:30)
DX: K40.30 Unilateral inguinal hernia, with obstruction, without gangrene, not specified as recurrent (principal); I10 Essential (primary) hypertension; Z86.79 Personal history of other diseases of the circulatory system; E78.00 Pure hypercholesterolemia, unspecified; Z85.828 Personal history of other malignant neoplasm of skin; Z95.1 Presence of aortocoronary bypass graft; Z95.4 Presence of other heart-valve replacement; Z80.9 Family history of malignant neoplasm, unspecified; Z82.49 Family history of ischemic heart disease and other diseases of the circulatory system; Z87.891 Personal history of nicotine dependence; Z79.82 Long term (current) use of aspirin
CPT/HCPCS: 49650; S2900; A9270; C1781; J0690; J1100; J1170; J1885; J2405; J2704; J3010; J7120

== ENCOUNTER 2023-08-27 07:04 | Outpatient (CLI) | payer MEDICARE, SELFPAY ==
[2023-08-27 08:04] LABS: Basophils Percent Auto 0.6 % (0.2-1.2); Eosinophils Absolute Auto 0.3 K/mm3 (0-0.3); Hematocrit 45.1 % (42.0-52.0); Immature Granulocyte Absolute 0.02 K/mm3 (0.00-0.031); Immature Granulocyte Percent A 0.4 % (0-0.5); Lymphocytes Absolute Auto 1.45 K/mm3 (0.9-3.2); Mean Corpuscular HGB Conc 33.3 g/dl (32-36); Mean Corpuscular Hemoglobin 32.5 pg (26-34); Mean Corpuscular Volume 97.6 fl (80-100); Mean Platelet Volume 9.6 fl (7.4-10.4); Monocytes Absolute Auto 0.5 K/mm3 (0.1-0.6); Monocytes Percent Auto 8.7 % (2.6-8.5); Neutrophils Absolute Auto 3.1 K/mm3 (1.3-6.7); Neutrophils Percent Auto 58.3 % (45.5-73.1); Platelet Count Result 233 k/mm3 (150-375); Red Blood Count 4.62 M/mm3 (4.6-6.20); Red Cell Distribution Width 12.6 % (11.5-14.5); White Blood Count 5.4 K/mm3 (4.5-10.0)
[2023-08-27 08:20] LABS: Alanine Aminotransferase 25 U/L (6-50); Albumin Level 4.3 g/dL (3.5-5.1); Alkaline Phosphatase 84 U/L (38-126); Anion Gap 9 mmol/L (8-16); Aspartate Amino Transferase 30 U/L (17-59); Bilirubin,Total 1.1 mg/dL (0.2-1.3); Blood Urea Nitrogen 12 mg/dL (9-20); Calcium 9.6 mg/dL (8.4-10.2); Carbon Dioxide 28 mmol/L (22-30); Chloride 102 mmol/L (98-107); Cholesterol 148 mg/dL (0-200); Estimated Glomerular Filt Rate > 60; Glucose 99 mg/dL (65-110); HDL Direct 50 mg/dL; Sodium 139 mmol/L (137-145); Triglycerides 162 mg/dL (<150)
[2023-08-27 08:31] LABS: LDL Cholesterol Direct 58 mg/dL
[2023-08-27 08:48] LABS: Total Triiodothyronine (T3) 1.21 NG/ML (0.97-1.69)
[2023-08-27 08:51] LABS: Free T4 Free Thyroxine 1.12 ng/mL (0.78-2.19)
== END 2023-08-27 07:05 | disposition home or self-care (01) ==
LOC: ANHLAB 07:08
PROVIDERS: PCP Family Medicine; Visit Provider Nurse Practitioner Adult Health
DX: Z12.5 Encounter for screening for malignant neoplasm of prostate (principal); I10 Essential (primary) hypertension; E78.5 Hyperlipidemia, unspecified; R53.83 Other fatigue; Z13.0 Encounter for screening for diseases of the blood and blood-forming organs and certain disorders involving the immune mechanism; Z13.6 Encounter for screening for cardiovascular disorders; Z13.220 Encounter for screening for lipoid disorders; Z13.29 Encounter for screening for other suspected endocrine disorder
CPT/HCPCS: 36415; 80053; 80061; 84153; 84439; 84443; 84480; 85025; G0103

== ENCOUNTER 2024-05-25 14:14 | Outpatient (CLI) | payer MEDICARE, SELFPAY ==
[2024-05-25 15:15] LABS: Basophils Percent Auto 0.6 % (0.2-1.2); Eosinophils Absolute Auto 0.2 K/mm3 (0-0.3); Eosinophils Percent Auto 3.1 % (0-4.4); Immature Granulocyte Absolute 0.04 K/mm3 (0.00-0.031); Immature Granulocyte Percent A 0.6 % (0-0.5); Lymphocytes Absolute Auto 1.46 K/mm3 (0.9-3.2); Lymphocytes Percent Auto 21.4 % (18.3-44.2); Mean Corpuscular HGB Conc 33.3 g/dl (32-36); Mean Corpuscular Hemoglobin 32.6 pg (26-34); Mean Corpuscular Volume 97.8 fl (80-100); Mean Platelet Volume 9.9 fl (7.4-10.4); Monocytes Absolute Auto 0.5 K/mm3 (0.1-0.6); Monocytes Percent Auto 7.8 % (2.6-8.5); Neutrophils Absolute Auto 4.5 K/mm3 (1.3-6.7); Neutrophils Percent Auto 66.5 % (45.5-73.1); Platelet Count Result 245 k/mm3 (150-375); Red Cell Distribution Width 12.7 % (11.5-14.5); White Blood Count 6.8 K/mm3 (4.5-10.0)
== END 2024-05-25 14:15 | disposition home or self-care (01) ==
LOC: ANHLAB 14:18
PROVIDERS: PCP Family Medicine; Visit Provider Family Medicine
DX: K92.1 Melena (principal)
CPT/HCPCS: 36415; 85025

== ENCOUNTER 2024-07-02 13:16 | Emergency (ER) | payer MEDICARE, SELFPAY ==
[2024-07-02 13:32] VITALS: BP 115/62; PULSE 79; RESP 18; TEMP 36.1; O2SAT 98
--- NOTE | 2024-07-02 13:54 | ED.MALEGU ---
HPI - Male Genitourinary General Chief complaint: Urogenital-Male Stated complaint: uti symptoms Time Seen by Provider: 07/02/24 13:46 Source: patient, RN notes reviewed and old records reviewed Mode of arrival: ambulatory Limitations: no limitations History of Present Illness HPI Narrative: 84 year old male who presents to [facility] care with complaints of one week duration of dark cloudy urine with some itching and burning after urination. Patient is uncircumcised and states that he pushes skin back and cleanses well under foreskin. Patient reports history of prostate enlargement and he follows with Dr Serrano and takes Flomax and finasteride daily. MD Complaint: dysuria and other (cloudy urine) Onset (ago): week(s) (1) Severity: moderate Quality: burning and other (itching) Related Data Home Medications Medication Instructions Recorded Confirmed allopurinol 300 mg tablet 300 mg PO DAILY 04/17/21 07/02/24 aspirin 81 mg tablet 81 mg PO DAILY 04/17/21 07/02/24 atorvastatin 10 mg tablet 10 mg PO DAILY 04/17/21 07/02/24 coQ10 (ubiquinol) 200 mg capsule 200 mg PO DAILY 04/17/21 07/02/24 hydrochlorothiazide 25 mg tablet 25 mg PO DAILY 04/17/21 07/02/24 multivitamin 1 tablet PO DAILY 04/17/21 07/02/24 omeprazole 20 mg capsule,delayed 20 mg PO DAILY 04/17/21 07/02/24 release tamsulosin 0.4 mg capsule 0.8 mg PO HS 04/17/21 07/02/24 vitamin B complex (B 1 tablet PO DAILY 04/17/21 07/02/24 Complex-Vitamin B12 tablet) finasteride 5 mg tablet 5 mg PO DAILY 06/18/24 07/02/24 hydrocortisone 2.5 % topical cream 1 applic RECTAL DAILY hemorrhoids 07/02/24 07/02/24 with perineal applicator (Anusol-HC) Allergies Allergy/AdvReac Type Severity Reaction Status Date / Time adhesive tape Allergy Intermediate BLISTERS Verified 07/02/24 13:31 Review of Systems Review of Systems: CONSTITUTIONAL: Denies fever, chills, or sweats. CARDIOVASCULAR: Denies chest pain, palpitations, or edema. RESPIRATORY: Denies cough or dyspnea. GASTROINTESTINAL: Denies abdominal pain, nausea, vomiting, or diarrhea. GENITOURINARY: Reports dysuria,no frequency, urgency. Denies flank pain or hematuria. SKIN: Denies rash or itching. MUSCULOSKELETAL: Denies back pain or myalgia. Denies CVA tenderness NEUROLOGIC: Denies headache All systems reviewed & are unremarkable except as noted in HPI and below PMFSH Past Medical History Medical History CAD (coronary artery disease) GERD (gastroesophageal reflux disease) High cholesterol History of blood transfusion HTN (hypertension) Obesity Rectal bleeding Skin cancer Surgical History Surgical History H/O aortic valve replacement H/O prostate biopsy H/O right inguinal hernia repair H/O shoulder surgery History of colon resection Hx of CABG S/P AVR Family History Family History Mother Family history of malignant neoplasm Sibling Family history of malignant neoplasm Diabetes mellitus Hypertension Kidney disease Father Family history of Parkinson's disease Other Heart disease Social History Social History Smoking packs per day: 1.5 Smoking cigarettes per day: 30.0 Years smoked: 40 Smoking pack-years: 60.00 Smoking status: Former smoker Tobacco type: cigarettes Smoking end date: 09/16/06 Alcohol intake: current Drinks per week: 4 Alcohol use details: SOCIALLY-beer Substance use: never Substance use type: does not use Living arrangements: with family Occupation/Education: retired Spiritual care concerns: No Comments At time of signature, agree with nursing past medical, surgical, social and family history. There is no relevant family history pertinent to the presenting complaint Exam Narrative: GENERAL: Well-appearing, well-jeaneth
[2024-07-02 14:12] LABS: EDUAAPPEAR Cloudy; EDUABILI Negative (Negative); EDUABLOOD 2+ (Negative); EDUACOLOR1 Yellow; EDUAGLUCOSE Negative (Negative); EDUAKETONE Negative (Negative); EDUALEUKO 3+ (Negative); EDUANITRATE Negative (Negative); EDUAPROTEIN 2+ (Negative); EDUAUROBILI 0.2
== END 2024-07-02 14:13 | disposition home or self-care (01) ==
PROVIDERS: Emergency Provider Registered Nurse; PCP Family Medicine
DX: N39.0 Urinary tract infection, site not specified (principal); B95.1 Streptococcus, group B, as the cause of diseases classified elsewhere; I25.10 Atherosclerotic heart disease of native coronary artery without angina pectoris; E78.00 Pure hypercholesterolemia, unspecified; I10 Essential (primary) hypertension; K21.9 Gastro-esophageal reflux disease without esophagitis; E66.9 Obesity, unspecified; Z68.28 Body mass index [BMI] 28.0-28.9, adult; Z85.828 Personal history of other malignant neoplasm of skin; Z95.1 Presence of aortocoronary bypass graft; Z87.891 Personal history of nicotine dependence; Z95.2 Presence of prosthetic heart valve
CPT/HCPCS: 81003; 87086; 99213; G0463

== ENCOUNTER 2024-10-19 16:29 | Emergency (ER) | payer MEDICARE, SELFPAY ==
[2024-10-19 16:36] VITALS: BP 148/75; PULSE 80; RESP 20; TEMP 36.3; O2SAT 99
--- OUTSIDE RECORDS SUMMARY | 2024-10-19 16:38 | XMS_ITS | Clinical Summary ---
Author Organization [facility] Address [facility]. [place], [place] [id number] [place] [address] Care Team Providers Care Wiper Blender Name Role Phone Unavailable Primary Care Provider Unavailabl e Allergies Active Allergy Reactions Criticality Noted Date Comments Tape Itching 01/10/2024 Medications allopurinol (ZYLOPRIM) 300 MG tablet 12/19/2023 Active atorvastatin (LIPITOR) 10 MG tablet Take 1 tablet (10 mg total) by mouth daily. Active docusate sodium (COLACE) 100 MG capsule Take 1 capsule (100 mg total) by mouth 2 (two) times daily. 07/29/2023 Active finasteride (PROSCAR) 5 MG tablet 12/19/2023 Active hydroCHLOROthia zide (HYDRODIURIL) 25 MG tablet Take 1 tablet (25 mg total) by mouth 2 (two) times daily. Active omeprazole (PRILOSEC) 20 MG capsule 12/04/2023 Active tamsulosin (FLOMAX) 0.4 MG Cap 12/15/2023 Active aspirin 81 MG chewable tablet Chew 1 tablet (81 mg total) by mouth daily. Active Cyanocobalamin (VITAMIN B-12) 50 MCG Tab Active Coenzyme Q10 (CO Q 10) 10 MG Cap Active Active Problems Problem Noted Date Diagnosed Date Mixed hyperlipidemia 12/28/2021 SOB (shortness of breath) 01/04/2021 S/P aortic valve replacement with bioprosthetic valve 11/05/2017 Benign hypertension 08/01/2016 Overview (01/10/2024): HTN (hypertension), benign Gastroesophageal reflux disease without esophagi tis 08/01/2016 Overview (01/10/2024): GERD without esophagitis History of tobacco use 08/01/2016 Overview (01/10/2024): History of tobacco abuse Rheumatic disease of heart valve 08/01/2016 Overview (01/10/2024): Rheumatic valvular disease Family History Medical History Relation Comments Kidney failure Brother Parkinson's Disease Father Diabetes Mother Breast Cancer Sister Relation Status Comments Brother Father Mother Sister Social History Tobacco Use Types Packs/Day Years Used Date Smoking Tobacco: Former Cigarettes Smokeless Tobacco: Never Tobacco Cessation:Counseling Given: No Alcohol Use Standard Drinks/Week Comments Yes 10 (1 standard drink = 0.6 oz pu re alcohol) PHQ-2 Answer Date Recorded Patient Health Questionnaire-2 Score 0 01/10/2024 Sex and Gender Information Value Date Recorded Sex Assigned at Not on file Legal Sex Male 7:30 PM CDT Gender Identity Not on file Sexual Orientation Not on file Last Filed Vital Signs Vital Sign Reading Time Taken Comments Blood Pressure 135/74 01/10/2024 7:43 AM CDT Pulse 78 01/10/2024 7:43 AM CDT Temperature 36.5 ??C (97.7 ??F) 01/10/2024 7:43 AM CD T Respiratory Rate 18 01/10/2024 7:43 AM CDT Oxygen Saturation 96% 01/10/2024 7:43 AM CDT Inhaled Oxygen Concentration - - Weight 101.6 kg (224 lb) 01/10/2024 7:43 AM CDT Height 182.9 cm (6') 01/10/2024 7:43 AM CDT Body Mass Index 30.38 01/10/2024 7:43 AM CDT Plan of Treatment Health Maintenance Due Date Last Done Comments Pneumococcal Vaccine: 65+ Ye ars (1 of 2 - PCV) 1946 Annual Medicare Wellness Visit 2006 COVID-19 Vaccine (2023-2 5 season) 2024 Influenza Adult (#1) 2024 PHQ-2 (Physician [place]) 09/16/2024 01/10/2024 DTaP, Tdap and Td Vaccines ( 1 - Tdap) 01/09/2025 Postponed from 06/14 (Patient Refused) PHQ-2 (Physician [place]) 01/09/2025 01/10/2024 RSV Immunization or 60+ Years (1 - 1-dose 75+ series) 01/09/2025 Postponed from 2016 (Patient Refused) Zoster Vaccines (1 of 2) 01/09/2025 Pos tponed from 1991 (Patient Refused) Meningococcal B Vaccine Aged Out No l onger eligible based on patient's age to complete this topic Meningococcal Vaccine Aged Out No marco a delvin eligible based on patient's age to complete this topic RSV Immunizations Under 20 Months Aged Out No longer eligible based on patient's age to complete this topic Insurance MEDICARE [facility]
--- OUTSIDE RECORDS SUMMARY | 2024-10-19 16:38 | XMS_ITS | Referral Summary ---
Author Organization [facility] [address] Address [address] [place] [address] Care Team Providers Care Tank Cooper Name Role Phone Nilesh Ho MD Primary Care Provider Allergies No known active allergies Medications omeprazole 20 mg tablet,delayed release (DR/EC) take 1 by Oral route once 0 0 08/01/2016 Active allopurinol (ZYLOPRIM) 300 mg tablet take 1 tablet by oral route every day 0 0 08/01/2016 Active multivitamin-min erals-lutein (MULTIVITAMIN 50 PLUS) tablet take 1 tablet by oral route every day 0 0 08/01/2016 Active cyanocobalamin (vitamin B-12) 1,000 mcg tablet take 1 by Oral route every day 0 0 08/01/2016 Active coenzyme Q10 (CO Q-10) 200 mg capsule take 1 by Oral route once 0 0 08/01/2016 Active aspirin 81 mg chewable tablet chew 1 tablet by oral route every day 0 0 02/07/2017 Active atorvastatin (LIPITOR) 10 mg tablet Take 1 tablet (10 mg total) by mouth daily Active hydroCHLOROthiaz abi (HYDRODIURIL) 25 mg tablet Take 1 tablet (25 mg total) by mouth 2 (two) times a day Active tamsulosin (FLOMAX) 0.4 mg extended release capsule 11/08/2020 Active finasteride (PROSCAR) 5 mg tablet 12/19/2023 Active Active Problems Problem Noted Date Diagnosed Date Mixed hyperlipidemia 12/28/2021 SOB (shortness of breath) 01/04/2021 S/P aortic valve replacement with bioprosthetic valve 11/05/2017 Rheumatic disease of heart valve 08/01/2016 Overview (12/22/2016): Rheumatic valvular disease History of tobacco use 08/01/2016 Overview (12/22/2016): History of tobacco abuse Gastroesophageal reflux disease without esophagi tis 08/01/2016 Overview (12/22/2016): GERD without esophagitis Benign hypertension 08/01/2016 Overview (12/22/2016): HTN (hypertension), benign Resolved Problems Problem Noted Date Diagnosed Date Resolved Date Dyslipidemia 11/05/2017 12/28/2021 History of prosthetic heart valve 08/01/2016 12/28/2021 Overview (12/22/2016): History of aortic valve replacement with bioprosthetic valve Social History Tobacco Use Types Packs/Day Years Used Date Smoking Tobacco: Never Smokeless Tobacco: Never Alcohol Use Standard Drinks/Week Comments No 0 (1 standard drink = 0.6 oz pur e alcohol) Personal Safety Answer Date Recorded Getting School Help Needed Not on file 11/15 Sex and Gender Information Value Date Recorded Sex Assigned at Not on file Legal Sex Male 4:16 AM ADMINISTRATIVE DIETITIAN Gender Identity Male 10/26/2020 6:29 PM ADMINISTRATIVE DIETITIAN Sexual Orientation Straight 10/26/2020 6: 29 PM ADMINISTRATIVE DIETITIAN Last Filed Vital Signs Vital Sign Reading Time Taken Comments Blood Pressure 116/60 12/31/2023 7:58 AM CDT Pulse 92 12/31/2023 7:58 AM CDT Temperature - - Respiratory Rate 18 11/09/2019 7:54 AM ADMINISTRATIVE DIETITIAN Oxygen Saturation 99% 12/31/2023 7:58 AM CDT Inhaled Oxygen Concentration - - Weight 100 kg (220 lb 6.4 oz) 12/31/2023 7:58 AM CDT Height 182.9 cm (6') 12/31/2023 7:58 AM CDT Body Mass Index 29.89 12/31/2023 7:58 AM CDT Plan of Treatment Not on file Insurance MEDICARE [facility] MEDICARE [facility] Care Teams Tank Cooper Relationship Specialty Start Date End Date Nilesh Ho MD PCP - General 08/01/16
--- OUTSIDE RECORDS SUMMARY | 2024-10-19 16:38 | XMS_ITS | Clinical Summary ---
Author Organization [facility] [address] Address [address] [place] [address] Care Team Providers Care Physician Assistant Certified Name Role Phone Nilesh Ho MD Primary [...] of aortic valve replacement with bioprosthetic valve Surgical History Surgery Date Site/Laterality Comments AORTIC VALVE REPLACEMENT CHOLECYSTECTOMY Medical History Medical History Date Comments History of diverticulitis Histor y of diverticulitis Gastroesophageal reflux disease GERD History of gout History of gout Benign prostatic hyperplasia BPH - Benign prostatic hypertrophy History of rheumatic fever H/O: rheumatic fever Hyperlipidemia Hypertension Heart valve stenosis Family History Medical History Relation Name Comments Parkinsonism Father Hypertension Mother Relation Name Status Comments Father (Age 80) Mother (Age 80) Social History Tobacco Use Types Packs/Day Years Used Date Smoking Tobacco: Never Smokeless Tobacco: Never Alcohol Use Standard Drinks/Week Comments No 0 (1 standard drink = 0.6 oz pur e alcohol) Personal Safety Answer Date Recorded Getting School Help Needed Not on file 11/15 Sex and Gender Information Value Date Recorded Sex Assigned at Not on file Legal Sex Male 4:16 AM INVENTORY TRANSCRIBER Gender Identity Male 10/26/2020 6:29 PM INVENTORY TRANSCRIBER Sexual Orientation Straight 10/26/2020 6: 29 PM INVENTORY TRANSCRIBER Obstetrics History Last Filed Vital Signs Vital Sign Reading Time Taken Comments Blood Pressure 116/60 12/31/2023 7:58 AM CDT Pulse 92 12/31/2023 7:58 AM CDT Temperature - - Respiratory Rate 18 11/09/2019 7:54 AM INVENTORY TRANSCRIBER Oxygen Saturation 99% 12/31/2023 7:58 AM CDT Inhaled Oxygen Concentration - - Weight 100 kg (220 lb 6.4 oz) 12/31/2023 7:58 AM CDT Height 182.9 cm (6') 12/31/2023 7:58 AM CDT Body Mass Index 29.89 12/31/2023 7:58 AM CDT Plan of Treatment Health Maintenance Due Date Last Done Comments Depression Screening 1941 Fall Risk Assessment 1940 Pneumococcal vaccine 65+ (1 of 2 - PCV) 1947 DTaP/Tdap/Td Vaccine (1 - Tdap) 1952 Hepatitis B Screening 1959 Zoster Vaccine (1 of 2) 1991 Well Visit 65+ 2006 Influenza Vaccine (#1) 2024 Insurance MEDICARE [facility] Address: [address] [address] [place] [address] [facility] MEDICARE [facility] Care Teams Physician Assistant Certified Relationship Specialty Start Date End Date Nilesh Ho MD PCP - General 08/01/16
--- OUTSIDE RECORDS SUMMARY | 2024-10-19 16:38 | XMS_ITS | Encounter Summary ---
Author Organization [facility] Address [address] [place] [address]. [place], [place] [address] [place] [address] Care Team Providers Care Flap Lining Binder Name Role Phone Don Cotto NP Primary Care Provide r Nando Tipton MD Primary Care Provider [phone] Encounter Details Date Type Department Care Team (Late st Contact Info) Description 04/03/2024 [place] Message Enc [facility] Medical Group Family & Internal Medicine [facility] [id number] [place] [phone] [facility] Provider Appt needs to be reset Social History Tobacco Use Types Packs/Day Years Used Date Smoking Tobacco: Former Cigarettes Smokeless Tobacco: Never Alcohol Use Standard Drinks/Week Comments Yes 10 (1 standard drink = 0.6 oz pu re alcohol) PHQ-2 Answer Date Recorded Patient Health Questionnaire-2 Score 0 01/10/2024 Sex and Gender Information Value Date Recorded Sex Assigned at Not on file Legal Sex Male 7:30 PM CDT Gender Identity Not on file Sexual Orientation Not on file documented as of this encounter Plan of Treatment Not on file documented as of this encounter Visit Diagnoses Not on filedocumented in this encounter Care Teams Flap Lining Binder Relationship Specialty Start Date End Date Don Cotto NP PCP - General [facility] 12/31/23 04/06/24 N[place] T[place] [id number] [place] [address] PCP - General INTERNAL MEDICINE 04/07/24 04/22/24 documented as of this encounter
[2024-10-19 17:04] LABS: EDCOVIDSCREEN Positive (Negative); EDINFLUASCREEN Negative (Negative); EDINFLUBSCREEN Negative (Negative)
--- NOTE | 2024-10-19 17:09 | ED_ITS ---
HPI - General Adult General Chief complaint: Upper Respiratory Infection Stated complaint: Cold History of Present Illness HPI narrative: Simeon Crowe is an 84 y/o Male who presents today with complaints of having pain cough that started early Saturday morning. He states that now he started to have some body aches and not really feeling well. He states he has taken Tylenol for this but thinks he is getting a cold. Related Data Home Medications ?Medication ?Instructions ?Recorded ?Confirmed ?Last Taken ?Type allopurinol 300 mg tablet 300 mg PO DAILY 04/17/21 08/18/24 04/25/21 History aspirin 81 mg tablet 81 mg PO DAILY 04/17/21 08/18/24 04/25/21 History atorvastatin 10 mg tablet 10 mg PO DAILY 04/17/21 08/18/24 04/25/21 History coQ10 (ubiquinol) 200 mg capsule 200 mg PO DAILY 04/17/21 08/18/24 04/25/21 History hydrochlorothiazide 25 mg tablet 25 mg PO DAILY 04/17/21 08/18/24 04/25/21 History multivitamin 1 tablet PO DAILY 04/17/21 08/18/24 04/25/21 History omeprazole 20 mg capsule,delayed 20 mg PO DAILY 04/17/21 08/18/24 04/25/21 History release tamsulosin 0.4 mg capsule 0.8 mg PO HS 04/17/21 08/18/24 04/25/21 History vitamin B complex (B 1 tablet PO DAILY 04/17/21 08/18/24 04/25/21 History Complex-Vitamin B12 tablet) finasteride 5 mg tablet 5 mg PO DAILY 06/18/24 08/18/24 Unknown History hydrocortisone 2.5 % topical cream 1 applic RECTAL DAILY hemorrhoids 07/02/24 08/18/24 Unknown History with perineal applicator (Anusol-HC) Allergies Allergy/AdvReac Type Severity Reaction Status Date / Time adhesive tape Allergy Mild BLISTERS Verified 10/19/24 16:35 Review of Systems Review of Systems: All systems reviewed & are unremarkable except as noted in HPI and below PMFSH Past Medical History Medical History Rectal bleeding High cholesterol Skin cancer HTN (hypertension) GERD (gastroesophageal reflux disease) History of blood transfusion Obesity CAD (coronary artery disease) Surgical History Surgical History H/O aortic valve replacement H/O prostate biopsy H/O shoulder surgery H/O right inguinal hernia repair History of colon resection Hx of CABG S/P AVR Family History Family History Mother Family history of malignant neoplasm Sibling Family history of malignant neoplasm Diabetes mellitus Hypertension Kidney disease Father Family history of Parkinson's disease Other Heart disease Social History Social History Smoking packs per day: 1.5 Smoking cigarettes per day: 30.0 Years smoked: 40 Smoking pack-years: 60.00 Smoking status: Former smoker Tobacco type: cigarettes Smoking end date: 09/16/06 Alcohol intake: current Drinks per week: 4 Alcohol use details: SOCIALLY-beer Substance use: never Substance use type: does not use Living arrangements: with family Occupation/Education: retired Spiritual care concerns: No Exam Narrative: GENERAL: Well-appearing, well-nourished, and in no acute distress. HEAD: Normocephalic, atraumatic. EYES: PERRLA and EOMI. ENT: Nares clear, no rhinorrhea or epistaxis. Mucous membranes moist. Oropharynx without tonsillar hypertrophy exudate or other lesions. Bilateral TMs pearly mclaughlin non bulging NECK: Supple. No adenopathy or masses. No carotid bruits or JVD CHEST: Clear to auscultation. No respiratory distress. No wheezes rales or rhonchi HEART: Regular rate and rhythm. No murmur heard. Normal peripheral pulses. EXTREMITIES: Normal range of motion. No edema. SKIN: Warm, dry, no rash. NEURO: No focal deficits. Alert and oriented x3. PSYCH: Normal mood and affect. Course Course Level of Care: Express Care Visit Vital Signs Vital signs: Vital Signs Temperature 36.3 C L 10/19/24 16:36 Pulse Rate 80 10/19/24 16:36 Respiratory Rate 20 10/19/24 16:36 Blood Pressure 148/75 H 10/19/24 16:36 Pulse Oximetry 99 10/19/24 16:36 Oxygen Delivery Room Air 10/19/24 16:36 Temperature 36.3 C L 10/19/24 16:36 Pulse Rate 80 10/19/24 16:36 Respiratory Rate 20 10/19/24 16:36 Blood Pressure 148/75 H 10/19/24 16:36 Pulse Oximetry 99 10/19/24 16:36 Oxygen Delivery Room Air 10/19/24 16:36 Medical Decision Making MDM Narrative Medical decision making narrative: This 84 year old patient presents with symptoms most suggestive of viral upper respiratory tract infection. Lungs are clear bilaterally without any respiratory distress or accessory muscle use. Patient is positive for COVID, lung sounds are clear exam is reassuring encouraged to push hydration Tylenol Motrin and may try Mucinex [id number] to help with the symptoms. Encouraged him to get plenty of rest and to follow up with his primary care doctor in 3 days to ensure that he is still improving not getting any worse. He is agreeable to this plan. He denies chest pain denies shortness of breath satting 99% on room air. we discussed Paxlovid , however he is over the 48 hour roni of starting Paxlovid and he is on a couple medications and interact with that so at this time we are going to treat this with symptomatic treatment Procedures: Pulse oximetry interpretation - not hypoxic. Review of medical records. DISPOSITION: Discharged home in stable condition. IMPRESSION: Acute upper respiratory tract infection, likely viral. COVID- Medical Records Medical records reviewed: Yes I reviewed the external patient's medical records. Vital Signs Vital Signs: Vital Signs Temperature 36.3 C L 10/19/24 16:36 Pulse Rate 80 10/19/24 16:36 Respiratory Rate 20 10/19/24 16:36 Blood Pressure 148/75 H 10/19/24 16:36 Pulse Oximetry 99 10/19/24 16:36 Oxygen Delivery Room Air 10/19/24 16:36 Temperature 36.3 C L 10/19/24 16:36 Pulse Rate 80 10/19/24 16:36 Respiratory Rate 20 10/19/24 16:36 Blood Pressure 148/75 H 10/19/24 16:36 Pulse Oximetry 99 10/19/24 16:36 Oxygen Delivery Room Air 10/19/24 16:36 vitals reviewed by me Lab Data Lab results reviewed: Yes I reviewed the patient's lab results. Labs: Lab Results 10/19/24 Range/Units 16:39 POC Influenza A Ag Negative (Negative) POC Influenza B Ag Negative (Negative) POC SARS CoV-2 Ag Positive (Negative) Discharge Plan Discharge Clinical Impression: COVID Patient Disposition: Home, Self-Care Condition: Stable Instructions: Antibiotic Form Additional Instructions: continue to push oral hydration and get plenty of rest. Continue to take Tylenol and Motrin for body aches and pain. You may also try to take Mucinex [id number] twice a day to help loosen your secretions. If you develop any worsening symptoms such as chest pain, shortness of breath, difficulty breathing, vomiting then go to the ER. Patient Language: Serbian Prescriptions: No Action hydrocortisone [Anusol-HC] 2.5 % cream with perineal applicator 1 applic RECTAL DAILY finasteride 5 mg tablet 5 mg PO DAILY atorvastatin 10 mg tablet 10 mg PO DAILY tamsulosin 0.4 mg capsule 0.8 mg PO HS omeprazole 20 mg capsule,delayed release(DR/EC) 20 mg PO DAILY allopurinol 300 mg tablet 300 mg PO DAILY hydrochlorothiazide 25 mg tablet 25 mg PO DAILY multivitamin Tablet 1 tablet PO DAILY vitamin B complex [B Complex-Vitamin B12] Tablet 1 tablet PO DAILY aspirin 81 mg Tablet 81 mg PO DAILY coQ10 (ubiquinol) 200 mg Capsule 200 mg PO DAILY Follow-up/Referrals: PHYSICIAN,COMPUTER GAME DESIGNER [Primary Care Provider] - Time of Disposition: 17:15
== END 2024-10-19 17:18 | disposition home or self-care (01) ==
PROVIDERS: Emergency Provider Nurse Practitioner Family
DX: U07.1 COVID-19 (principal); Z79.82 Long term (current) use of aspirin; I10 Essential (primary) hypertension; K21.9 Gastro-esophageal reflux disease without esophagitis; I25.10 Atherosclerotic heart disease of native coronary artery without angina pectoris; Z85.828 Personal history of other malignant neoplasm of skin; Z95.1 Presence of aortocoronary bypass graft; Z95.2 Presence of prosthetic heart valve; Z87.891 Personal history of nicotine dependence
CPT/HCPCS: 87426; 87804; 99212; G0463

== ENCOUNTER 2024-10-26 09:06 | Outpatient (CLI) | payer MEDICARE, SELFPAY ==
--- OUTSIDE RECORDS SUMMARY | 2024-10-26 09:30 | XMS_ITS | Referral Summary ---
Author Organization [facility] [address] Address [address] [place] [address] Care Team Providers Care Manager Interface Name Role Phone Nilesh Ho MD Primary [...] on file Legal Sex Male 4:16 AM OFFICE EQUIPMENT TECHNICIAN Gender Identity Male 10/26/2020 6:29 PM OFFICE EQUIPMENT TECHNICIAN Sexual Orientation Straight 10/26/2020 6: 29 PM OFFICE EQUIPMENT TECHNICIAN Last Filed Vital Signs Vital Sign Reading Time Taken Comments Blood Pressure 116/60 12/31/2023 7:58 AM CDT Pulse 92 12/31/2023 7:58 AM CDT Temperature - - Respiratory Rate 18 11/09/2019 7:54 AM OFFICE EQUIPMENT TECHNICIAN Oxygen Saturation 99% 12/31/2023 7:58 AM CDT Inhaled Oxygen Concentration - - Weight 100 kg (220 lb 6.4 oz) 12/31/2023 7:58 AM CDT Height 182.9 cm (6') 12/31/2023 7:58 AM CDT Body Mass Index 29.89 12/31/2023 7:58 AM CDT Plan of Treatment Not on file Insurance MEDICARE [facility] MEDICARE [facility] Care Teams Manager Interface Relationship Specialty Start Date End Date Nilesh Ho MD PCP - General 08/01/16
--- OUTSIDE RECORDS SUMMARY | 2024-10-26 09:30 | XMS_ITS | Clinical Summary ---
Author Organization [facility] [address] Address [address] [place] [address] Care Team Providers Care Power Electronics Research Engineer Name Role Phone Nilesh Ho MD Primary [...] on file Legal Sex Male 4:16 AM REGISTERED MIDWIFE Gender Identity Male 10/26/2020 6:29 PM REGISTERED MIDWIFE Sexual Orientation Straight 10/26/2020 6: 29 PM REGISTERED MIDWIFE Obstetrics History Last Filed Vital Signs Vital Sign Reading Time Taken Comments Blood Pressure 116/60 12/31/2023 7:58 AM CDT Pulse 92 12/31/2023 7:58 AM CDT Temperature - - Respiratory Rate 18 11/09/2019 7:54 AM REGISTERED MIDWIFE Oxygen Saturation 99% 12/31/2023 7:58 AM CDT [...] 2006 Influenza Vaccine (#1) 2024 Insurance MEDICARE [facility] Address: [address] [address] [place] [address] [facility] MEDICARE [facility] Care Teams Power Electronics Research Engineer Relationship Specialty Start Date End Date Nilesh Ho MD PCP - General 08/01/16
--- OUTSIDE RECORDS SUMMARY | 2024-10-26 09:30 | XMS_ITS | Encounter Summary ---
Author Organization [facility] Address [facility] [place] [address] Care Team Providers Care Slot Machine Repairer Name Role Phone Don Cotto NP Primary Care Provide r Nando Tipton MD Primary Care Provider [phone] Encounter Details Date Type Department Care Team (Late st Contact Info) Description 04/03/2024 Priceonomics Message Enc [facility] Medical Group Family & Internal Medicine [facility] [id number] [place] [phone] [facility] Provider Appt needs to be reset Social [...] on filedocumented in this encounter Care Teams Slot Machine Repairer Relationship Specialty Start Date End Date Don Cotto NP PCP - General [facility] 12/31/23 04/06/24 [place] [id number] [address] PCP - General INTERNAL MEDICINE 04/07/24 04/22/24 documented as of this encounter
--- OUTSIDE RECORDS SUMMARY | 2024-10-26 09:30 | XMS_ITS | Clinical Summary ---
Author Organization [facility] Address [address] [place] [address] Care Team Providers Care Risk Lead Name Role Phone Unavailable Primary Care Provider [...] 78 01/10/2024 7:43 AM CDT Temperature 36.5 C (97.7 F) 01/10/2024 7:43 AM CDT Respiratory Rate 18 01/10/2024 7:43 AM CDT [...] 2024 Influenza Adult (#1) 2024 PHQ-2 (Physician [place]) 09/16/2024 01/10/2024 DTaP, Tdap and Td Vaccines ( 1 - Tdap) 01/09/2025 Postponed from 06/14 (Patient Refused) PHQ-2 (Physician [place]) 01/09/2025 01/10/2024 RSV Immunization or 60+ Years [...] age to complete this topic Insurance MEDICARE [facility]
--- OUTSIDE RECORDS SUMMARY | 2024-10-26 09:30 | XMS_ITS | Continuity of Care Document ---
Author Organization [facility] Address [address] [place] [address] Phone Care Team Providers Care Bulk Fluids Handler Name Role Phone Braeden Mancini MD Unavailable Unavailable Allergies, Adverse Reactions, Alerts Substance Reaction Status Criticality TAPE, OCCLUSIVE ADHESIVE Active No Information Medications Medication Instructions Dosage Effective Dates (start - stop) Status Comments OMEPRAZOLE (unknown strength) Not Available - Active Problems Condition Type Effective Dates (start - stop) [facility]ini [facility] Status Comments No Known Problems Procedures Procedure Date OFFICE/OUTPATIENT VISIT, [facility] Advance Directives Directive Yes / No Effective Date File Name No Information Encounters Encounter Description Practice Location Reason(s) For Visit Diagnoses Date Provider Providers Copied on Encounter OFFICE/OUTPATI ENT VISIT, [facility] see, [address] [place], [address], [place] tel:[phone] [facility] left knee pain (chief complaint) Pain in joint involving lower leg [facility]. [address] [place], [place], [id number], [place]. tel:[phone] Referring Provider: Eliseo Silva, [address] [facility] [address], [place], [address]. tel:[phone] Family History Family Member Type Diagnosis Age At Onset Problem (finding) Family history of Cance r, unknown Problem (finding) Family history of Diabe christina mellitus Immunizations Vaccine Date Status Comments Influenza virus vaccine, intranasal administered Note: Invalid docume nted admin date was NULL/NULL/2012. ; Source: Other Provider Pneumo (2 yrs or older) (PPV23) administered Note: Invalid docume nted admin date was NULL/NULL/2012. ; Source: Other Provider Payers Payer name Insurance type Covered alliance party ID Devonte connell(s) Medicare [place] [facility] Benefits Admin [id number] [facility] Secondary CI [id number] Social History Type Description Quantity Date Captured Comments Alcohol Use Details Unknown Caffeine Use Details Unknown Tobacco Use Status Smoking Status Smoker, current stat us unknown Non-Smoking Tobacco Use Details : No Details Available : No Details Available Sex Male Vital Signs Date / Time: Height Weight BMI Pulse Rate Blood Pressure Temperature Respiratory Rate Body Surface Area Head Circumference Head Circ. Percentile Wt./Akash. Percentile BMI percentile Pulse Ox Inhaled Ox 1:52 PM 73.00 in 94.347 kg (208.00 lbs) 27.4 4 kg/m eter (2) 72 /min 130/80 mm[Hg] Chief Complaint And Reason For Visit From encounter dated '01/12/2014 14:15'. left knee pain (chief complaint). Description: Mr Crowe is a 73 year old male who complains of leftknee pain. He presents with pain on the left side. Reason For Referral Reason For Referral No Information History Of Present Illness Encounter Date Complaint History Of Prese nt Illness left knee pain Mr Crowe is a 73 year old male who complains of left knee pain. He presents with pain on the left side. Functional Status Date Functional Assessmen t No Information Instructions Date Instruction Additional Infor mation No Information Assessments Type Assessment Date assessment Pain in joint involving lower le g Patient Care Teams Name Effective Dates (start - stop) Status Members No Information
[2024-10-26 10:22] LABS: Basophils Absolute Auto 0.1 K/mm3 (0.0-0.1); Basophils Percent Auto 0.8 % (0.2-1.2); Eosinophils Absolute Auto 0.2 K/mm3 (0-0.3); Eosinophils Percent Auto 2.9 % (0-4.4); Hematocrit 44.7 % (42.0-52.0); Hemoglobin 15.2 g/dL (14.0-18.0); Immature Granulocyte Absolute 0.12 K/mm3 (0.00-0.031); Immature Granulocyte Percent A 1.8 % (0-0.5); Lymphocytes Absolute Auto 1.61 K/mm3 (0.9-3.2); Lymphocytes Percent Auto 24.6 % (18.3-44.2); Mean Corpuscular Hemoglobin 32.2 pg (26-34); Mean Corpuscular Volume 94.7 fl (80-100); Mean Platelet Volume 9.1 fl (7.4-10.4); Monocytes Absolute Auto 0.7 K/mm3 (0.1-0.6); Monocytes Percent Auto 9.9 % (2.6-8.5); Neutrophils Absolute Auto 3.9 K/mm3 (1.3-6.7); Platelet Count Result 304 k/mm3 (150-375); Red Blood Count 4.72 M/mm3 (4.6-6.20); Red Cell Distribution Width 12.2 % (11.5-14.5); White Blood Count 6.5 K/mm3 (4.5-10.0)
[2024-10-26 10:35] LABS: Alanine Aminotransferase 46 U/L (6-50); Albumin Level 4.3 g/dL (3.5-5.1); Alkaline Phosphatase 84 U/L (38-126); Anion Gap 8 mmol/L (4-12); Aspartate Amino Transferase 40 U/L (17-59); Bilirubin,Total 0.9 mg/dL (0.2-1.3); Blood Urea Nitrogen 15 mg/dL (9-20); Calcium 9.2 mg/dL (8.4-10.2); Carbon Dioxide 32 mmol/L (22-30); Chloride 97 mmol/L (98-107); Cholesterol 131 mg/dL (0-200); Estimated Glomerular Filt Rate > 60; Glucose 91 mg/dL (65-110); HDL Direct 46 mg/dL; Potassium 3.8 mmol/L (3.4-5.0); Sodium 137 mmol/L (137-145); Triglycerides 118 mg/dL (<150)
[2024-10-26 10:46] LABS: LDL Cholesterol Direct 54 mg/dL
[2024-10-26 11:03] LABS: Prostate Specific Antigen 5.2 ng/mL (< OR = 4.0)
== END 2024-10-26 09:07 | disposition home or self-care (01) ==
PROVIDERS: PCP Family Medicine; Visit Provider Registered Nurse
DX: E78.5 Hyperlipidemia, unspecified (principal); I10 Essential (primary) hypertension; M10.9 Gout, unspecified; Z12.5 Encounter for screening for malignant neoplasm of prostate
CPT/HCPCS: 36415; 80053; 80061; 84153; 85025; G0103

== ENCOUNTER 2024-12-11 12:45 | Outpatient (CLI) | payer MEDICARE, SELFPAY ==
--- NOTE | ~2024-12-11 | US_ITS ---
EXAMINATION: US aorta [employer] [facility] DATE: 12/11/2024 16:15 CDT INDICATION: Tobacco use. High cholesterol. TECHNIQUE: Grayscale, color Doppler, and pulsed Doppler images of the aorta and common iliac arteries were obtained. COMPARISON: None. FINDINGS: The proximal aorta measures 3.2 cm greatest sagittal dimension. The mid aorta measures 2.6 cm greates t sagittal dimension. The distal aorta measures 2 cm greatest sagittal dimension. The right common in ternal iliac artery measures 1.3 cm. The left common iliac artery measures 1.2 cm. IMPRESSION: 1. Mild fusiform proximal abdominal aortic aneurysm measuring 3.2 cm. Reviewed, dictated and finalized at location A.
--- OUTSIDE RECORDS SUMMARY | 2024-12-11 12:59 | XMS_ITS | Clinical Summary ---
Author Organization [facility] [address] Address [address] [place] [address] Care Team Providers Care Manager Statistical Name Role Phone Nilesh Ho MD Primary Care Provider [phone] Allergies No known active allergies Medications omeprazole [...] of aortic valve replacement with bioprosthetic valve Encounters Date Type Department Care Team Description 12/01/2024 11:45 AM CDT Office Visit [facility] Cardiology at [address] [place] [address] Braydon Wheeler MD Benign hypertension (Primary Dx); Mixed hyperlipidemia; S/P aortic valve replacement with bioprosthetic valve; Rheumatic disease of heart valve; History of tobacco use from Last 3 Months Surgical History Surgery Date Site/Laterality Comments AORTIC VALVE REPLACEMENT CHOLECYSTECTOMY CARDIAC VALVE REPLACEMENT COLON SURGERY Medical History Medical History Date Comments History of diverticulitis Histor y of diverticulitis Gastroesophageal reflux disease GERD History of gout History of gout Benign prostatic hyperplasia BPH - Benign prostatic hypertrophy History of rheumatic fever H/O: rheumatic fever Hyperlipidemia Hypertension Heart valve stenosis Rheumatic fever Family History Medical History Relation Name Comments Parkinsonism Father Hypertension Mother Ximena Relation Name Status Comments Father (Age 80) Mother Ximena (Age 80) Social History Tobacco Use Types Packs/Day Years Used Date Smoking Tobacco: Former Cigarettes S tarted: 2006 Smokeless Tobacco: Never Tobacco Cessation:Counseling Given: Not Answered Alcohol Use Standard Drinks/Week Comments No 0 (1 standard drink = 0.6 oz pur e alcohol) Sex and Gender Information Value Date Recorded Sex Assigned at Not on file Legal Sex Male 4:16 AM BLEACH MIXER Gender Identity Male 10/26/2020 6:29 PM BLEACH MIXER Sexual Orientation Straight 10/26/2020 6: 29 PM BLEACH MIXER Obstetrics History Last Filed Vital Signs Vital Sign Reading Time Taken Comments Blood Pressure 128/84 12/01/2024 11:50 AM CDT Pulse 80 12/01/2024 11:50 AM CDT Temperature - - Respiratory Rate 18 11/09/2019 7:54 AM BLEACH MIXER Oxygen Saturation 96% 12/01/2024 11:50 AM CDT Inhaled Oxygen Concentration - - Weight 99.3 kg (219 lb) 12/01/2024 11:50 AM CDT Height 182.9 cm (6') 12/01/2024 11:50 AM CDT Body Mass Index 29.7 12/01/2024 11:50 AM CDT Plan of Treatment Health Maintenance Due Date Last Done Comments Depression Screening 1940 Fall Risk Assessment 1940 DTaP/Tdap/Td Vaccine (1 - Tdap) 1952 Hepatitis B Screening 1959 Pneumococcal vaccine 65+ (1 of 2 - PCV) 1960 Zoster Vaccine (1 of 2) 1991 Well Visit 65+ 2006 Influenza Vaccine (#1) 2024 Insurance MEDICARE [facility] Address: [address] [phone] [facility] MEDICARE [facility] Care Teams Manager Statistical Relationship Specialty Start Date End Date Nilesh Ho MD PCP - General 08/01/16
--- OUTSIDE RECORDS SUMMARY | 2024-12-11 12:59 | XMS_ITS | Referral Summary ---
Author Organization [facility] [address] Address [address] [place] [address] Care Team Providers Care Cane Feeder Name Role Phone Nilesh Ho MD Primary Care Provider Encounters Date Type Department Care Team Description 12/01/2024 11:45 AM CDT Office Visit [facility] Cardiology at [address] [place] [address] Braydon Wheeler MD Benign hypertension (Primary Dx); Mixed hyperlipidemia; S/P aortic valve replacement with bioprosthetic valve; Rheumatic disease of heart valve; History of tobacco use from Last 3 Months Allergies No known active allergies Medications omeprazole [...] on file Legal Sex Male 4:16 AM PROFESSOR OF LITERACY Gender Identity Male 10/26/2020 6:29 PM PROFESSOR OF LITERACY Sexual Orientation Straight 10/26/2020 6: 29 PM PROFESSOR OF LITERACY Last Filed Vital Signs Vital Sign Reading Time Taken Comments Blood Pressure 128/84 12/01/2024 11:50 AM CDT Pulse 80 12/01/2024 11:50 AM CDT Temperature - - Respiratory Rate 18 11/09/2019 7:54 AM PROFESSOR OF LITERACY Oxygen Saturation 96% 12/01/2024 11:50 AM CDT Inhaled Oxygen Concentration - - Weight 99.3 kg (219 lb) 12/01/2024 11:50 AM CDT Height 182.9 cm (6') 12/01/2024 11:50 AM CDT Body Mass Index 29.7 12/01/2024 11:50 AM CDT Plan of Treatment Not on file Insurance MEDICARE [facility] MEDICARE [facility] Care Teams Cane Feeder Relationship Specialty Start Date End Date Nilesh Ho MD PCP - General 08/01/16
--- OUTSIDE RECORDS SUMMARY | 2024-12-11 12:59 | XMS_ITS | Encounter Summary ---
Author Organization [facility] Address Formerly [facility] [place] [address] Care Team Providers Care Protective Services Officer Name Role Phone Don Cotto NP Primary Care Provide r Nando Tipton MD Primary Care Provider [phone] Encounter Details Date Type Department Care Team (Late st Contact Info) Description 04/03/2024 [employer] Message Enc [facility] Family & Internal Medicine [facility] [address] [place] [address] [facility] Provider Appt needs to be reset Social [...] on filedocumented in this encounter Care Teams Protective Services Officer Relationship Specialty Start Date End Date Don Cotto NP PCP - General NURSE PRACTITIONER ADULT HEALTH 12/31/23 04/06/24 [place] [id number] [address] PCP - General INTERNAL MEDICINE 04/07/24 04/22/24 documented as of this encounter
--- OUTSIDE RECORDS SUMMARY | 2024-12-11 12:59 | XMS_ITS | Clinical Summary ---
Author Organization [facility] Address [address] [place] [address] Care Team Providers Care Heel Burnisher Name Role Phone Unavailable Primary Care Provider [...] 2024 Influenza Adult (#1) 2024 PHQ-2 (Physician [place]) 09/16/2024 01/10/2024 DTaP, Tdap and Td Vaccines ( 1 - Tdap) 01/09/2025 Postponed from 06/14 (Patient Refused) RSV Immunization or 60+ Years (1 - [...] age to complete this topic Insurance MEDICARE [facility]
--- OUTSIDE RECORDS SUMMARY | 2024-12-11 12:59 | XMS_ITS | Continuity of Care Document ---
Author Organization [facility] Address [address] [place] [address] Phone Care Team Providers Care Hyperbaric Nurse Name Role Phone Braeden Mancini MD Unavailable Unavailable Allergies, Adverse Reactions, Alerts Substance Reaction Status Criticality TAPE, OCCLUSIVE ADHESIVE Active No Information Medications Medication Instructions Dosage Effective Dates (start - stop) Status Comments OMEPRAZOLE (unknown strength) Not Available - Active Problems Condition Type Effective Dates (start - stop) [facility]ini [facility] Status Comments No Known Problems Procedures Procedure Date OFFICE/OUTPATIENT VISIT, [facility] Advance Directives Directive Yes / No Effective Date File Name No Information Encounters Encounter Description Practice Location Reason(s) For Visit Diagnoses Date Provider Providers Copied on Encounter OFFICE/OUTPATI ENT VISIT, [facility] see, [address] [place], [address], [place] tel:[phone] [facility] left knee pain (chief complaint) Pain in joint involving lower leg [facility]. [address] [place], [place], [id number], [place]. tel:[phone] Referring Provider: Eliseo Silva, [address] [facility] [address], [place], [address]. tel:[phone] Family History Family Member Type Diagnosis Age [...] Provider Payers Payer name Insurance type Covered constitution party ID Devonte connell(s) Medicare [place] [facility] Benefits Admin [id number] [facility] Secondary CI [id number] Social History Type Description Quantity Date Captured [...]
== END 2024-12-11 12:46 | disposition home or self-care (01) ==
PROVIDERS: PCP Family Medicine; Visit Provider Internal Medicine Cardiovascular Disease
DX: E78.00 Pure hypercholesterolemia, unspecified (principal); Z87.891 Personal history of nicotine dependence; I71.40 Abdominal aortic aneurysm, without rupture, unspecified
CPT/HCPCS: 76706

== ENCOUNTER 2025-04-27 08:25 | Outpatient (CLI) | payer MEDICARE, SELFPAY ==
--- OUTSIDE RECORDS SUMMARY | 2025-04-27 08:39 | XMS_ITS | Patient Health Record ---
Author Organization [facility] Address [address] [place] [id number] Care Team Providers Care Engineering Analyst Name Role Phone Doreen Shetty Primary Care Provider Kobi Hendricks [facility] [phone] Reason For Referral No Information Medications Medication SIG (Take, Route, Frequency, Duration) Notes Start Date End Date Status GLUCOSAMINE AND CHONDROITIN WITH MSM 400 MG-500 MG-250 MG 1 TAB(S) ORALLY QD; Duration: 30 DAY(S) *Please review for potential replacement for e-prescription and drug interaction check* Active CoQ-10 100 MG 1 cap(s) orally qd; Duration: 30 day(s) Active Magnesium Oxide 250 MG 1 tab(s) orally qd; Duration: 14 day(s) Active Vitamin B-12 1000 MCG 1 tab(s) orally qd; Duration: 30 day(s) Active COLCRYS 0.6 MG 1 TAB(S) ORALLY QD; Duration: 30 DAY(S) *Please review for potential replacement for e-prescription and drug interaction check* 12/10/2014 Active Allopurinol 300 MG 1 tab(s) orally qd; Duration: 90 days 12/15/2014 Active Multivitamin - 1 tab(s) orally qd; Duration: 30 day(s) Active Omeprazole Magnesium 20 MG 1 tab(s) orally qd; Duration: 14 day(s) Active Social History Tobacco Use: Social History Observation Description Date Details (start date - stop date) Former Smoker NA - NA smoking Question Answer Notes status: former smoker smoked 1 ppd x 4 2 yrs; dc'd 2005 Section Notes: denies tattoos, body piercin gs Problems Problem Type SNOMED Code ICD Code Onset Dates Problem Status W/U Status Risk Notes Problem Primary gout (68119132) Idiopathic gout, 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) Active confirmed Problem Unspecified osteoarthritis, unspecified site (M19.90) Active confirmed Plan Of Treatment No Information Insurance Providers Payer Name Payer Address Payer Phone Subscriber Number Group Number Insured Name Patient Relationship to Insured Coverage Start Date Coverage End Date MEDICARE [address] [place] [phone] [id number] Simeon Crowe Self - patient is the insured [facility] [address] [place] [address] [id number] Simeon Crowe Self - patient is the insured Medical (General) History Medical History History ICD Code coronary disease GERD edema 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
--- OUTSIDE RECORDS SUMMARY | 2025-04-27 08:40 | XMS_ITS | Clinical Summary ---
Author Organization [facility] [address] Address [address] [place] [address] Care Team Providers Care Churn Drill Operator Name Role Phone Nilesh Ho MD Primary Care Provider [phone] Allergies No known active allergies Medications omeprazole [...] on file Legal Sex Male 4:16 AM CITY MAINTENANCE MANAGER Gender Identity Male 10/26/2020 6:29 PM CITY MAINTENANCE MANAGER Sexual Orientation Straight 10/26/2020 6: 29 PM CITY MAINTENANCE MANAGER Obstetrics History Last Filed Vital Signs Vital Sign Reading Time Taken Comments Blood Pressure 128/84 12/01/2024 11:50 AM CDT Pulse 80 12/01/2024 11:50 AM CDT Temperature - - Respiratory Rate 18 11/09/2019 7:54 AM CITY MAINTENANCE MANAGER Oxygen Saturation 96% 12/01/2024 11:50 AM CDT [...] Well Visit 65+ 2006 Influenza Vaccine (#1) 2025 Insurance MEDICARE [facility] Address: [facility] [address] [place] [address] [facility] MEDICARE [facility] Care Teams Churn Drill Operator Relationship Specialty Start Date End Date Nilesh Ho MD PCP - General 08/01/16
--- OUTSIDE RECORDS SUMMARY | 2025-04-27 08:40 | XMS_ITS ---
Author Organization [facility] Address [address] [place] [phone] Care Team Providers Care Manager Relocation Name Role Phone Doreen Shetty Primary Care Provider Kobi Hendricks Unavailable [phone] Migration, Provider Unavailable Unavailable REASON FOR VISIT [facility] To [facility] Conversion Encounter Medications Medication SIG (Take, Route, Frequency, Duration) Notes Start Date End Date Status Magnesium Oxide 250 MG 1 tab(s) orally qd; Duration: 14 day(s) Active COLCRYS 0.6 MG 1 TAB(S) ORALLY QD; Duration: 30 DAY(S) *Please review for potential replacement for e-prescription and drug interaction check* 12/10/2014 Active Allopurinol 300 MG 1 tab(s) orally qd; Duration: 90 days 12/15/2014 Active Multivitamin - 1 tab(s) orally qd; Duration: 30 day(s) Active Omeprazole Magnesium 20 MG 1 tab(s) orally qd; Duration: 14 day(s) Active GLUCOSAMINE AND CHONDROITIN WITH MSM 400 MG-500 MG-250 MG 1 TAB(S) ORALLY QD; Duration: 30 DAY(S) *Please review for potential replacement for e-prescription and drug interaction check* Active CoQ-10 100 MG 1 cap(s) orally qd; Duration: 30 day(s) Active Vitamin B-12 1000 MCG 1 tab(s) orally qd; Duration: 30 day(s) Active Encounters Encounter Location Date Provider Diagnosis [facility] [address] [place] [phone] 04/25/2024 Provider Migration Plan Of Treatment Medication Medication Name Sig Start Date Stop Date Notes Allopurinol 300 MG 1 tab(s) orally qd; Duration: 90 days 0 12/15/2014 Progress Notes * Simeon CROWE JDOB:1940 (84 yo M)Acc No.[id number]:04/25/2024 Patient: Simeon VENTURA Provider: :1940 A ge:83 Y S ex:Male Date:04/25/2024 Address:[address] [place] [address] , [place] [id number] Pcp:HAILE Lcay Subjective: * Chief Complaints: * 1 . Multum To Med[facility] Conversion Encounter. * Medical History: * Medications: T aking Omeprazole Magnesium 20 MG Tablet Delayed Release 1 tab(s) orally qd , Taking Multivitamin - Tablet 1 tab(s) orally qd , Taking CoQ-10 100 MG Capsule 1 cap(s) orally qd , Taking GLUCOSAMINE AND CHONDROITIN WITH MSM 400 MG-500 MG-250 MG TABLET 1 TAB(S) ORALLY QD , Notes to Pharmacist: *Please review for potential replacement for e-prescription and drug interaction check*, Taking Vitamin B-12 1000 MCG Tablet 1 tab(s) orally qd , Taking Magnesium Oxide 250 MG Tablet 1 tab(s) orally qd , Taking COLCRYS 0.6 MG TABLET 1 TAB(S) ORALLY QD , Notes to Pharmacist: *Please review for potential replacement for e-prescription and drug interaction check* Objective: * Vitals: Assessment: Plan: * Treatment: * Images: * Electronic signature of Prov ider Migration on 04/27/2025 at 09:40 AM EDT Sign off status: Pending * Provider: Date: 04/25/2024 Generated for Favio chua/Tristian/Braden on: 04/27/2025 09:40 AM EDT
--- OUTSIDE RECORDS SUMMARY | 2025-04-27 08:40 | XMS_ITS | Encounter Summary ---
Author Organization [facility] Address [facility] hospital[address] [place] [address] Care Team Providers Care Finish Repair Worker Name Role Phone Don Cotto NP Primary Care Provide r Nando Tipton MD Primary Care Provider [phone] Encounter Details Date Type Department Care Team (Late st Contact Info) Description 04/03/2024 [employer] Message Enc [facility] Family & Internal Medicine [facility] [id number] [place] [phone] [facility] Provider Appt needs to be reset [...] on filedocumented in this encounter Care Teams Finish Repair Worker Relationship Specialty Start Date End Date Don Cotto NP PCP - General NURSE PRACTITIONER ADULT HEALTH 12/31/23 04/06/24 [place] [address] [address] PCP - General INTERNAL MEDICINE 04/07/24 04/22/24 documented as of this encounter
--- OUTSIDE RECORDS SUMMARY | 2025-04-27 08:40 | XMS_ITS | Clinical Summary ---
Author Organization [facility] Address [address] [place] [address] Care Team Providers Care Manager Primary Care Name Role Phone Unavailable Primary Care Provider [...] Health Maintenance Due Date Last Done Comments DTaP, Tdap and Td Vaccines ( 1 - Tdap) 1960 Pneumococcal Vaccine: 50+ Ye ars (1 of 2 - PCV) 1960 Zoster Vaccines (1 of 2) 1991 Annual Medicare Wellness Visit 2006 RSV Immunization or 60+ Years (1 - 1-dose 75+ series) 2016 COVID-19 Vaccine (2023-2 5 season) 2024 PHQ-2 (Physician [place]) 09/16/2024 01/10/2024 Meningococcal B Vaccine Aged Out No l onger eligible based on patient's age to complete this topic Meningococcal Vaccine Aged Out No marco a delvin eligible based on patient's age to complete this topic RSV Immunizations Under 20 Months Aged Out No longer eligible based on patient's age to complete this topic Insurance MEDICARE [facility]
--- OUTSIDE RECORDS SUMMARY | 2025-04-27 08:40 | XMS_ITS | Encounter Summary ---
Author Organization [facility] Healthcare Address [address] [place] [address] Care Team Providers Care Supervisor Salvage Name Role Phone Nilesh Ho MD Primary Care Provider [phone] Encounter Details Date Type Department Care Team (Late st Contact Info) Description 12/11/2024 Orders Only [facility] [address] [place] [address] Scanning, Provider Social History Tobacco Use Types Packs/Day Years Used Date Smoking Tobacco: Former Cigarettes S tarted: 2006 Smokeless Tobacco: Never Alcohol Use Standard Drinks/Week Comments No 0 (1 standard drink = 0.6 oz pur e alcohol) Sex and Gender Information Value Date Recorded Sex Assigned at Not on file Legal Sex Male 4:16 AM LAWYER REAL ESTATE Gender Identity Male 10/26/2020 6:29 PM LAWYER REAL ESTATE Sexual Orientation Straight 10/26/2020 6: 29 PM LAWYER REAL ESTATE documented as of this encounter Plan of Treatment Not on file documented as of this encounter Procedures Procedure Name Priority Date/Time Associated Diagnosis Comments SCAN - RADIOLOGY/IMAGING 12/11/2024 documented in this encounter Results * SCAN - RADIOLOGY/IMAGING (12/11/2024) Anatomical Region Laterality Modality Other us Provider Scanning Final Result documented in this encounter Visit Diagnoses Not on filedocumented in this encounter Care Teams Supervisor Salvage Relationship Specialty Start Date End Date Nilesh Ho MD PCP - General 08/01/16 documented as of this encounter
[2025-04-27 09:48] LABS: Hematocrit 44.5 % (42.0-52.0); Hemoglobin 15.0 g/dL (14.0-18.0); Mean Corpuscular HGB Conc 33.7 g/dl (32-36); Mean Corpuscular Hemoglobin 32.4 pg (26-34); Mean Corpuscular Volume 96.1 fl (80-100); Platelet Count Result 231 k/mm3 (150-375); Red Blood Count 4.63 M/mm3 (4.6-6.20); White Blood Count 5.5 K/mm3 (4.5-10.0)
[2025-04-27 10:12] LABS: Alanine Aminotransferase 24 U/L (6-50); Albumin Level 4.3 g/dL (3.5-5.1); Alkaline Phosphatase 72 U/L (38-126); Anion Gap 7 mmol/L (4-12); Aspartate Amino Transferase 43 U/L (17-59); Bilirubin,Total 0.8 mg/dL (0.2-1.3); Blood Urea Nitrogen 14 mg/dL (9-20); Calcium 9.1 mg/dL (8.4-10.2); Carbon Dioxide 29 mmol/L (22-30); Chloride 102 mmol/L (98-107); Cholesterol 136 mg/dL (0-200); Estimated Glomerular Filt Rate > 60; Glucose 96 mg/dL (65-110); HDL Direct 53 mg/dL; Potassium 3.9 mmol/L (3.4-5.0); Sodium 138 mmol/L (137-145); Total Protein 7.7 g/dL (6.3-8.2); Triglycerides 100 mg/dL (<150)
[2025-04-27 10:26] LABS: Hemoglobin A1C 5.7 % (<5.7)
[2025-04-27 10:56] LABS: Prostate Specific Antigen 6.7 ng/mL (< OR = 4.0); Thyroid Stimulating Hormone 1.930 uIU/mL (0.465-4.680)
== END 2025-04-27 08:26 | disposition home or self-care (01) ==
PROVIDERS: PCP Family Medicine; Visit Provider Nurse Practitioner Family
DX: E78.5 Hyperlipidemia, unspecified (principal); N40.0 Benign prostatic hyperplasia without lower urinary tract symptoms; Z13.1 Encounter for screening for diabetes mellitus; Z13.21 Encounter for screening for nutritional disorder; Z13.29 Encounter for screening for other suspected endocrine disorder
CPT/HCPCS: 36415; 80053; 80061; 83036; 84153; 84443; 85027